=== PATIENT | female | born 1955 | race Two or more races ===

== ENCOUNTER 2020-01-14 13:14 | Inpatient (IN) | payer MEDICAID ==
[2020-01-14] VITALS (26 sets, daily range): BP systolic 35–132; BP diastolic 15–87
[~2020-01-14] VITALS: Ht 149.9 cm; Wt 40.0 kg
[~2020-01-14 13:14] MED LIST: IRON325 M1 PO
--- NOTE | 2020-01-14 13:30 | NUR ---
ED Nurse Note:pt. was BIBA from home with ALOC and hypotension, rectal temp was 93.3, pt. was covered with bearhugger for hypotermia, pt. was placed on patient monitor, blood and covid swab sent to labs, pt. has all 4 extremities contracted, very mulnurished on arrival, she was placed in trendelenburg position for hypotension, given IV fluids, F/C incerted per MD order, pt. has bilateral pedal edema,
[2020-01-14 13:47] LABS: HEMATOCRIT 29.3 % (37.0-47.0); HEMOGLOBIN 8.7 G/DL (12.0-16.0); MEAN CORPUSCULAR VOLUME 77 FL (80-99); MONOCYTES % (AUTO) 11.3 % (1.0-10.0); NEUTROPHILS % (AUTO) 60.8 % (45.0-75.0); PLATELET COUNT 141 K/UL (150-450); RED BLOOD COUNT 3.82 M/UL (4.20-5.40); RED CELL DISTRIBUTION WIDTH 22.1 % (11.6-14.8); WHITE BLOOD COUNT 6.4 K/UL (4.8-10.8)
[2020-01-14 13:58] LABS: INR 1.6 (0.9-1.1)
--- NOTE | 2020-01-14 14:00 | NUR ---
ED Nurse Note:pt. has perianal errosion on skin and multiple skin discolorations on both feet and hands
[2020-01-14 14:01] LABS: ANION GAP 10 mmol/L (5-15); BLOOD UREA NITROGEN 60 mg/dL (7-18); CALCIUM 7.3 MG/DL (8.5-10.1); CARBON DIOXIDE 20 MMOL/L (21-32); CHLORIDE 107 MMOL/L (98-107); CREATININE 2.5 MG/DL (0.55-1.30); POTASSIUM 5.9 MMOL/L (3.5-5.1); SODIUM 137 MMOL/L (136-145)
[2020-01-14] MEDS ORDERED: cefTRIAXone 1 GM in NS 55 ML IVPB ONE (14:15)
[2020-01-14 14:17] LABS: APPEARANCE,URINE SLIGHTLY CLOUDY; BILIRUBIN, URINE 2+ (NEGATIVE); COLOR,URINE BROWN; GLUCOSE, URINE (UA) NEGATIVE (NEGATIVE); KETONES,URINE 1+ (NEGATIVE); LEUKOCYTE ESTERASE ,URINE 1+ (NEGATIVE); NITRITE,URINE POSITIVE (NEGATIVE); PH,URINE 5 (4.5-8.0); PROTEIN,URINE 2+ (NEGATIVE); UROBILINOGEN,URINE 4 MG/DL (0.0-1.0)
[2020-01-14 14:21] LABS: ALANINE AMINOTRANSFERASE 36 U/L (12-78); ALBUMIN 1.2 G/DL (3.4-5.0); ALBUMIN/GLOBULIN RATIO 0.3 (1.0-2.7); ALKALINE PHOSPHATASE 120 U/L (46-116); AMYLASE 23 U/L (25-115); ASPARTATE AMINO TRANSFERASE 31 U/L (15-37); BILIRUBIN,TOTAL 0.5 MG/DL (0.2-1.0); CKMB 6.8 NG/ML (0.0-3.6); CREATINE KINASE 89 U/L (26-308); LACTATE DEHYDROGENASE 237 U/L (81-234)
--- NOTE | 2020-01-14 14:26 | NUR ---
patients son sinefranci the consent for central line
--- NOTE | 2020-01-14 14:34 | Diagnostic Imaging Report ---
Indication: Altered mental status Technique: XRAY Chest 1v Comparison: 10/13/2015 Findings: Heart size and mediastinal contours are stable compared to the prior exam. There is no definite focal airspace consolidation, pleural effusion or pneumothorax. Remote/healed bilateral rib fractures are seen. A chronic deformity of the left proximal humerus is again noted. Impression: No radiographic evidence of acute cardiopulmonary disease.
[2020-01-14] MEDS ORDERED: Levophed 4mg/4mL Inj IV ONE (14:42)
[2020-01-14] MEDS ORDERED: Lidocaine 1% MPF 10mg/ml 5ml ONE (14:42)
[2020-01-14 14:53] LABS: FERRITIN 35 NG/ML (8-388)
--- NOTE | 2020-01-14 15:15 | NUR ---
ED Nurse Note:blood cultures and lactic reflax sent to labs, ER MD was trying to put central line for levophed infusion
--- NOTE | 2020-01-14 15:19 | Emergency Room Report ---
History of Present Illness General Chief Complaint: Altered Level of Consciousness Source: Family Member, EMS (Ever Stark MD) Present Illness HPI 65-year-old female presents the ED for evaluation. Brought in by EMS from home. She was hypotensive. Increased lethargy over the last few days according to son. Home health nurse check blood pressure today and states it was low. Son states patient has a history of anemia. Patient is more confused than usual. States she lost a lot of weight at least recently as she is not eating or drinking. Unable to provide any additional additional history at this time. No other aggravating relieving factors. No other associated symptoms (Ever Stark MD) Allergies: Coded Allergies: No Known Allergies (Unverified , 10/13/15) COVID-19 Screening Contact w/high risk pt: No Experienced COVID-19 symptoms?: No COVID-19 Testing performed NEON TUBE PUMPER: No (Ever Stark MD) Patient History Past Medical History: none Past Surgical History: none Pertinent Family History: none Social History: Denies: smoking, alcohol use, drug use Now: No Immunizations: UTD Reviewed Nursing Documentation: PMH: Agreed; PSxH: Agreed (Ever Stark MD) Nursing Documentation-PMH Past Medical History: No Stated History (Ever Stark MD) Review of Systems All Other Systems: limited (Ever Stark MD) Physical Exam Vital Signs Date Time Temp Pulse Resp B/P (MAP) Pulse Ox O2 Delivery O2 Flow Rate FiO2 01/14/20 13:00 97.9 95 24 117/93 (101) 94 Nasal Cannula 3.0 Sp02 EP Interpretation: reviewed, normal General Appearance: cachetic, other - lethargic Head: normocephalic, atraumatic Eyes: bilateral eye normal inspection, bilateral eye PERRL ENT: hearing grossly normal, normal pharynx, no angioedema, normal voice Neck: full range of motion, supple/symm/no masses Respiratory: chest non-tender, lungs clear, normal breath sounds, speaking full sentences Cardiovascular #1: regular rate, rhythm, no edema Cardiovascular #2: 2+ carotid (R), 2+ carotid (L), 2+ radial (R), 2+ radial (L) , 2+ dorsalis pedis (R), 2+ dorsalis pedis (L) Gastrointestinal: normal bowel sounds, non tender, soft, non-distended, no guarding, no rebound Rectal: deferred Genitourinary: normal inspection, no CVA tenderness Musculoskeletal: back normal, other - contracted extremities Neurologic: other - lethargic Psychiatric: other - lethargic Reflexes: 3+ bicep (R), 3+ bicep (L), 3+ tricep (R), 3+ tricep (L), 3+ knee (R) , 3+ knee (L) Skin: other - see nursing notes Lymphatic: no adenopathy (Ever Stark MD) General Appearance: cachetic, Chronically Ill Neck: other - right side central venous catheter in place Respiratory: other - equal breath sounds Cardiovascular #1: edema - right leg Gastrointestinal: other - no mass Musculoskeletal: other - contracted Neurologic: motor weakness, other - poor responsiveness. Psychiatric: other - depressed affect Skin: other (Lane Longoria MD) Procedures Critical Care Time Critical Care Time Patient had a critical medical condition which untreated could potentially result in life or limb threatening injury. Total critical care time excluding separately billed procedures including discussion with family and consultants was approximately 1:15 minutes. (Lane Longoria MD) Intubation Intubation : Consent: Emergent Time of Intubation: 16:21 Intubation Method: orotracheal Tube Size (cm): 6.5 Medications: Etomidate Breath Sounds after Intubation: equal Intubation Complications: no complications Post Intubation Xray: Yes Attempts: One Patient Tolerated: Well Complications: None Progress Tube secured at 20 cm at the gums. Direct resolution of vocal cords with laryngoscopy with MAC 31 (Lane Longoria MD) Medical Decision Making Diagnostic Impression: Primary Impression: Shock Additional Impressions: Hypotension Anemia Malnutrition Cholelithiasis Coagulopathy Respiratory failure CVA (cerebral vascular accident) Kidney stone ER Course Patient endorsed to me by Dr. Stark. See Dr. Stark's note for full history and physical. patient had significant hypotension as well as malnutrition poorly responsive to fluid bolus. She had been hypotensive and hypothermic on arrival. Bedside ultrasound showed no evidence of pericardial effusion. Patient had a recent central line placement by Dr. Stark with adequate line placement. Patient had markedly diminished blood pressure and subsequently started on pressors. She had been having subsequent agonal breathing. Blood sugar appear to be adequate. Patient was given IV fluid boluses as well as IV antibiotics. She was given hydrocortisone. She was given IV calcium for hyperkalemia. Patient's blood pressure continue to be low and post intubation chest x-ray showed possible mass versus hematoma to the right apical area. Patient's family was consented for CT of the chest and patient's blood pressure had improved enough to the point she was able to be taken to CT. per discussion with the patient's family members patient is full code. Ct head showed some possible CVA. Patient was not anticoagulated due to likely bleeding. 1. Pleural-based masslike abnormal soft tissue at the right apex and extending along the medial aspect of the right upper lobe. A few foci of pleural gas on the right. Differential is hematoma versus malignancy. 2. Diffuse anasarca and upper abdominal mesenteric/omental edema. 3. Hyperemia of the esophageal and visualized upper abdominal GI tract. This can be seen in the setting of shock.Patient has a poor overall prognosis given the patient's multiple comorbidities. CT imaging of the chest showed possible right-sided Dr. Arnie Frost was contacted for inpatient management due to panel physician. Dr. Gibson he was contacted for surgical consult. CT of abdomen showed renal stone, diffuse mesenteric edema, cholelithiasis, fatty liver. Labs Test 01/14/20 13:10 01/14/20 15:10 White Blood Count 6.4 K/UL (4.8-10.8) Red Blood Count 3.82 M/UL (4.20-5.40) Hemoglobin 8.7 G/DL (12.0-16.0) Hematocrit 29.3 % (37.0-47.0) Mean Corpuscular Volume 77 FL (80-99) Mean Corpuscular Hemoglobin 22.8 PG (27.0-31.0) Mean Corpuscular Hemoglobin Concent 29.7 G/DL (32.0-36.0) Red Cell Distribution Width 22.1 % (11.6-14.8) Platelet Count 141 K/UL (150-450) Mean Platelet Volume 6.0 FL (6.5-10.1) Neutrophils (%) (Auto) 60.8 % (45.0-75.0) Lymphocytes (%) (Auto) 26.0 % (20.0-45.0) Monocytes (%) (Auto) 11.3 % (1.0-10.0) Eosinophils (%) (Auto) 0.0 % (0.0-3.0) Basophils (%) (Auto) 2.0 % (0.0-2.0) Prothrombin Time 16.7 SEC (9.30-11.50) Prothromb Time International Ratio 1.6 (0.9-1.1) Activated Partial Thromboplast Time 35 SEC (23-33) D-Dimer 1.13 mg/L FEU (0.00-0.49) Urine Color Brown Urine Appearance Slightly cloudy Urine pH 5 (4.5-8.0) Urine Specific [place] 1.015 (1.005-1.035) Urine Protein 2+ (NEGATIVE) Urine Glucose (UA) Negative (NEGATIVE) Urine Ketones 1+ (NEGATIVE) Urine Blood 1+ (NEGATIVE) Urine Nitrite Positive (NEGATIVE) Urine Bilirubin 2+ (NEGATIVE) Urine Ictotest Negative (NEGATIVE) Urine Urobilinogen 4 MG/DL (0.0-1.0) Urine Leukocyte Esterase 1+ (NEGATIVE) Urine RBC 2-4 /HPF (0 - 2) Urine WBC 2-4 /HPF (0 - 2) Urine Squamous Epithelial Cells Moderate /LPF (NONE/OCC) Urine Amorphous Sediment Few /LPF (NONE) Urine Bacteria Few /HPF (NONE) Urine Hyaline Casts 5-10 /LPF (NONE) Urine Mucus Moderate /LPF (NONE/OCC) Sodium Level 137 MMOL/L (136-145) Potassium Level 5.9 MMOL/L (3.5-5.1) Chloride Level 107 MMOL/L (98-107) Carbon Dioxide Level 20 MMOL/L (21-32) Anion Gap 10 mmol/L (5-15) Blood Urea Nitrogen 60 mg/dL (7-18) Creatinine 2.5 MG/DL (0.55-1.30) Estimat Glomerular Filtration Rate 19.4 mL/min (>60) Glucose Level 95 MG/DL (74-106) Calcium Level 7.3 MG/DL (8.5-10.1) Ferritin 35 NG/ML (8-388) Total Bilirubin 0.5 MG/DL (0.2-1.0) Aspartate Amino Transf (AST/SGOT) 31 U/L (15-37) Alanine Aminotransferase (ALT/SGPT) 36 U/L (12-78) Alkaline Phosphatase 120 U/L (46-116) Lactate Dehydrogenase 237 U/L (81-234) Total Creatine Kinase 89 U/L (26-308) Creatine Kinase MB 6.8 NG/ML (0.0-3.6) Creatine Kinase MB Relative Index 7.6 Troponin I 0.000 ng/mL (0.000-0.056) C-Reactive Protein, Quantitative < 0.4 mg/dL (0.00-0.90) Pro-B-Type Natriuretic Peptide 7266 pg/mL (0-125) Total Protein 5.8 G/DL (6.4-8.2) Albumin 1.2 G/DL (3.4-5.0) Globulin 4.6 g/dL Albumin/Globulin Ratio 0.3 (1.0-2.7) Amylase Level 23 U/L (25-115) Lactic Acid Level 1.90 mmol/L (0.66-2.22) (Lane Longoria MD) EKG Diagnostic Results Rate: normal Rhythm: NSR ST Segments: no acute changes ASA given to the pt in ED: No (Ever Stark MD) Rhythm Strip Diag. Results EP Interpretation: yes Rhythm: NSR, no PVC's, no ectopy (Ever Stark MD) Chest X-Ray Diagnostic Results Chest X-Ray Diagnostic Results : Chest X-Ray Ordered: Yes # of Views/Limited/Complete: 1 View Indication: Other EP Interpretation: Yes Interpretation: no consolidation, no effusion, no pneumothorax, no acute cardiopulmonary disease Impression: No acute disease Electronically Signed by: Electronically signed by Ever Stark MD (Ever Stark MD) Last Vital Signs Date Time Temp Pulse Resp B/P (MAP) Pulse Ox O2 Delivery O2 Flow Rate FiO2 01/14/20 14:01 80 14 Room Air 01/14/20 14:01 97.9 80/35 100 01/14/20 13:00 3.0 (Eevr Stark MD) Status: unchanged (Lane Longoria MD) Disposition: ADMITTED INPATIENT Condition: Critical Scripts No Active Prescriptions or Reported Meds Referrals: [facility] (PCP) Ever Stark MD Jan 14, 2020 15:19 [address] Longoria MD Jan 14, 2020 16:28
--- NOTE | 2020-01-14 16:00 | NUR ---
ED Nurse Note:pt. got right EJ cemtral line placed and pt. started on levophed IV for hypotension
--- NOTE | 2020-01-14 16:17 | NUR ---
ED Nurse Note:etomidate 30 mg was given at 1617, pt. got intubated by Dr. Longoria with 6.5 tube at 20cm Addendum: 01/14/20 at 1632 by PETAR ED Nurse Note:15mg etomidate was given at 1618 per mr order ,pt. got intubated by dr. Longoria with 6.5 tube at 20cm
--- NOTE | 2020-01-14 16:25 | Pre-Procedure Note/Attestation ---
Pre-Procedure Note/Attestation Complete Prior to Procedure Planned Procedure: not applicable Procedure Narrative: central line placement Indications for Procedure Pre-Operative Diagnosis: critically ill patient needing central venous access Attestation consent signed/obtained by ER physician. Espinoza Wright M.D. Jan 14, 2020 16:25
--- NOTE | 2020-01-14 16:29 | Diagnostic Imaging Report ---
Indication: Critically ill patient with hemodynamic instability needing central venous access. Technique: Procedure performed at bedside. Procedural timeout performed. Total sterile technique, including sterile probe cover and sterile gel, sterile gloves, hand hygiene, hat, mask, sterile gown, large sterile drape, and preparation with 2% chlorhexidine utilized. Local anesthesia with 1% lidocaine. Under real-time ultrasound guidance, puncture right internal jugular vein using 21-gauge needle, passage of microwire, exchange for a micropuncture sheath, passage 0.035 guidewire, exchange for a dilator followed by 15 cm long triple-lumen central line. Guidewire was removed. Catheter ports were aspirated and flushed, confirming appropriate functioning. The catheter was fixed to the skin and a sterile dressing was applied. A chest x-ray was obtained, documents catheter tip position at the expected region of the SVC. The patient significantly rotated on chest radiograph. There is slight lucency of the right base which is favored to be artifactual and related to patient rotation, especially as lung markings are seen in this region. Possibility of a tiny basilar pneumothorax is thought less likely but not entirely excluded.. Findings: As above IMPRESSION: Successful bedside placement of right transjugular central venous catheter, as described. Catheter cleared for immediate use. Slight lucency of the right lung base favored to be artifactual and related to patient positioning. Possibility of a tiny basilar pneumothorax is thought less likely but not entirely excluded. Attention on follow-up recommended. Findings discussed and images reviewed in person with ER physician Kaylah Stark
[2020-01-14] MEDS ORDERED: Etomidate 40mg/20ml Inj IV ONE (16:30)
[2020-01-14] MEDS ORDERED: DOPamine 400mg/250ml 250 ML IV ONE (16:38)
[2020-01-14] MEDS ORDERED: Calcium Gluconate 1gm/10ml vial ONE (16:41)
[2020-01-14] MEDS ORDERED: DOPamine 400mg/250ml 250 ML IV SCH ×2 (16:45→23:30)
[2020-01-14] MEDS ORDERED: Calcium Gluconate 1gm/10ml vial IVP ONE (16:45)
--- NOTE | 2020-01-14 16:48 | NUR ---
ED Nurse Note:pt. was started on dopamine drip at 5mcg/min
[2020-01-14] MEDS ORDERED: Omnipaque-300 100ml vial INJ ONE (17:00)
--- NOTE | 2020-01-14 17:02 | Diagnostic Imaging Report ---
Indication: Respiratory failure. Status post intubation. Technique: XRAY Chest 1v Comparison: Earlier the same day. Findings: Interval endotracheal intubation with the tip of the ET tube just above the level of clavicles, approximately 5.5 cm above the fadia. Right jugular central line tip the expected region of the SVC. There is opacification/obscuration of the right lung apex which persists despite better patient positioning. The possibility of pleural effusion or hemothorax not excluded, especially given history of difficulty and line placement. Recommend further evaluation with CT. No definite pneumothorax is seen. Impression: * Satisfactory endotracheal intubation. * Obscuration of the right apex and increased density of the right paratracheal stripe. Given known history of difficulty in central line placement, possibility of mediastinal hematoma or hemothorax not excluded. Recommend further evaluation with CT. This was discussed with Dr. Longoria of the emergency department.
[2020-01-14] MEDS ORDERED: Pantoprazole Inj IVP ONE (17:15)
[2020-01-14] MEDS ORDERED: Hydrocortisone 100mg Inj IV ONE (17:15)
--- NOTE | 2020-01-14 17:42 | NUR ---
ED Nurse Note:pt. is back from CT scan, continue on levophed and dopamine drips for BP management
[2020-01-14] MEDS ORDERED: Piperacillin/Tazobactam 2.25 GM in NS 110 ML IVPB ONE (17:45)
--- NOTE | 2020-01-14 18:12 | Diagnostic Imaging Report ---
EXAM: CT Head Without Intravenous Contrast CLINICAL HISTORY: AMS TECHNIQUE: Axial computed tomography images of the head/brain without intravenous contrast. CTDI is 53.4 mGy and DLP is 1125.7 mGy-cm. One or more of the following dose reduction techniques were used: automated exposure control, adjustment of the mA and/or kV according to patient size, use of iterative reconstruction technique. COMPARISON: No relevant prior studies available. FINDINGS: Brain: Low attenuation within the left basal ganglia and left frontal periventricular white matter. No intracranial hemorrhage. No mass- effect. Ventricles: Unremarkable. Bones/joints: Unremarkable. No fracture. Soft tissues: Unremarkable. Sinuses: Mucous retention cyst within the right maxillary sinus. Mastoid air cells: Unremarkable as visualized. IMPRESSION: Low attenuation within the left basal ganglia and left frontal periventricular white matter. An acute infarct could have this appearance in the appropriate clinical setting. Consider MRI for further evaluation. <MYCVCSECTION> Communications: 01/14/20 18:13 Call Doctor Regarding Above results, called Von HOOD on 01/13 18:13 (-07:00)
--- NOTE | 2020-01-14 18:21 | Diagnostic Imaging Report ---
EXAM: CT Chest With Intravenous Contrast CLINICAL HISTORY: Pleural effusion TECHNIQUE: Axial computed tomography images of the chest with intravenous contrast. CTDI is 1 day 2.7 mGy and DLP is 121 mGy-cm. One or more of the following dose reduction techniques were used: automated exposure control, adjustment of the mA and/or kV according to patient size, use of iterative reconstruction technique. COMPARISON: No relevant prior studies available. FINDINGS: Lungs/pleura: Pleural-based masslike abnormal soft tissue at the right apex and extending along the medial aspect of the right upper lobe. A few foci of pleural gas on the right. Heart: Unremarkable. No cardiomegaly. No significant pericardial effusion. Mediastinum: Hyperemia of the esophageal and visualized upper abdominal GI tract. Bones/joints: Increased density of the bones. No focal lesion. Soft tissues: Mesenteric edema within the upper abdomen. Subcutaneous emphysema adjacent to the right central line and within the left supraclavicular soft tissues. Diffuse anasarca. Vasculature: No pulmonary embolism. No acute aortic syndrome. Lymph nodes: Unremarkable. Tubes, lines and devices: Right IJ central line terminates within the SVC. Endotracheal tube terminates at the level of the clavicular heads. IMPRESSION: 1. Pleural-based masslike abnormal soft tissue at the right apex and extending along the medial aspect of the right upper lobe. A few foci of pleural gas on the right. Differential is hematoma versus malignancy. 2. Diffuse anasarca and upper abdominal mesenteric/omental edema. 3. Hyperemia of the esophageal and visualized upper abdominal GI tract. This can be seen in the setting of shock.
--- NOTE | 2020-01-14 18:54 | NUR ---
ED Nurse Note:family is at the bedside, continue titrating vasopressors to bring BP up, called blood bank to prepeair blood for transfusion
--- NOTE | 2020-01-14 18:59 | NUR ---
spoke with em from lab, states that they found 1 compatible bag of blood, and they will be doing a crossmatch, states blood will be ready in 10-15 minutes
--- NOTE | 2020-01-14 19:07 | Consultation ---
History of Present Illness General Reason for Hospitalization: Altered Level of Consciousness Present Illness HPI 65-year-old female presented from home with hypotension lethargic decreased level of consciousness and was identified to be significantly hypotensive in the emergency room admitted to intensive care unit further care and management respiratory insufficiency on support lines placed pressors initiated surgery called to evaluate assist with care. Patient seen, patient evaluated, chart reviewed. Potential mass for in the apex left side side severe anemia possible GI bleed patient able to provide examination or history Allergies: Coded Allergies: No Known Allergies (Unverified , 10/13/15) COVID-19 Screening Contact w/high risk pt: No Experienced COVID-19 symptoms?: No COVID-19 symptoms experienced: Shortness of Breath Medication History No Active Prescriptions or Reported Meds Patient History Limited by: medical condition History Provided By: Medical Record, PMD Healthcare decision maker Resuscitation status Advanced Directive on File Past Medical/Surgical History Past Medical/Surgical History: (1) Cellulitis (2) Dermatitis (3) Contracture of muscle (4) Anemia (5) Malnutrition (6) Hypotension (7) Shock Review of Systems Review of Symptoms -O-o-b-e-r-a-l- -R-O-S--:- -n-o- -d-m-s-g-h-t- -l-o-s-s- -o-r- -f-e-v-e-r- -F-q-i-j-i-s-w-k-b-i-c-a-l- -R-O-S--:- -n-o- -a-i-p-f-o-w-s-i-o-n- -o-r- -m-o-o-d- -s-v-r-n-g-e-s--,- -n-o- -a-d-z-o-r-y- -l-o-s-s- -A-t-g-d-e-v-l-m-i-c- -R-O-S--:- -n-o- -z-r-k-u-a-l- -b-a-l-n-g-e-s- -o-r- -e-y-e- -g-k-o-m-z-j-t-i-o-n- -E-N-T- -R-O-S--:- -n-o- -n-a-s-a-l- -s-q-i-v-f-u-t-i-o-n--,- -w-e-j-r-i-n-g- -l-o-s-s--,- -h-r-p-p-t-t-e-s-s- -Z-e-r-e-r-g-y- -a-n-d- -R-o-t-t-h-g-l-o-g-y- -R-O-S--:- -n-o- -m-v-x-e-r-g-i-c- -c-n-z-p-t-o-m-s- -o-r- -c-z-u-u-q-w-r-i-a- -E-i-j-f-h-m-i-n-g-i-c-a-l- -a-n-d- -W-z-h-l-j-s-t-i-c- -R-O-S--:- -n-o- -y-g-i-l-l-e-n- -r-t-b-n-d-s--,- -a-l-s-s-u-a-l- -k-s-w-e-d-i-n-g- -o-r- -n-y-z-i-s-i-n-g- -G-g-p-q-o-f-i-n-e- -R-O-S--:- -n-o- -o-l-z-y-u-r-i-a--,- -d-e-b-q-a-a-p-s-i-a- -,- -b-m-o-g-h-t- -f-g-h-n-g-e-s--,- -y-k-z-v-z-y-a-t-u-r-e- -h-z-g-c-a-h-r-a-n-c-e- -G-h-l-t-e-i-a-t-o-r-y- -R-O-S--:- -n-o- -c-o-u-g-h--,- -c-l-g-s-n-p-e-s-s- -o-f- -q-b-f-a-t-h--,- -o-r- -s-b-h-e-z-i-n-g- -Y-r-f-f-f-k-o-e-i-c-u-l-a-r- -R-O-S--:- -n-o- -c-h-e-s-t- -p-a-i-n- -o-r- -f-u-g-p-n-e-a- -o-n- -y-z-b-r-t-i-o-n- -U-a-l-k-p-u-s-z-w-v-m-u-i-n-a-l- -R-O-S--:- -t-e-d-i-e-s- -u-i-b-v-e-q-n-a-l- -p-a-i-n--,- -w-x-n-g-h-t- -r-e-d- -b-l-o-o-d- -i-n- -s-t-o-o-l-.- -D-c-s-i-d-q-m-n-z-t-m-w-t-a-l- -R-O-S--:- -n-o- -j-d-d-l-g-i-a-s- -o-r- -u-d-n-t-r-j-l-g-i-a-s- -K-j-v-k-k-e-w-a-a-c-a-l- -R-O-S--:- -n-o- -T-I-A- -o-r- -e-f-k-o-k-e- -r-b-w-p-t-o-m-s- -M-w-o-c-o-u-b-x-c-g-i-c-a-l- -R-O-S--:- -n-o- -n-e-w- -o-r- -n-b-t-n-g-i-n-g- -s-k-i-n- -c-c-c-i-o-n-s--,- -f-t-q-h-e-s- -o-r- -u-l-g-r-i-t-i-s- Physical Exam Physical Exam General appearance: ill distress, appears stated age Head: Normocephalic, without obvious abnormality, atraumatic Eyes: conjunctivae/corneas clear. PERRL, EOM's intact. Fundi benign Throat: Lips, mucosa, and tongue normal. Teeth and gums normal Neck: supple, symmetrical, trachea midline, no adenopathy, thyroid: not enlarged, symmetric, no tenderness/mass/nodules, no carotid bruit and no JVD Lungs: Decreased on support to auscultation bilaterally Heart: regular rate and rhythm, S1, S2 normal, no murmur, click, rub or gallop Abdomen: soft, non-tender. Bowel sounds normal. No masses, no organomegaly Extremities: extremities normal, atraumatic, no cyanosis or edema Pulses: 2+ and symmetric Skin: Skin color, texture, turgor normal. No rashes or lesions Neurologic: Grossly normal Last 24 Hour Vital Signs Date Time Temp Pulse Resp B/P (MAP) Pulse Ox O2 Delivery O2 Flow Rate FiO2 01/14/20 18:58 35/20 01/14/20 18:44 50/24 01/14/20 18:44 50/24 01/14/20 18:29 62/49 01/14/20 18:29 62/49 01/14/20 18:28 94.0 125 20 62/41 99 Mechanical Ventilator 9/14/20 17:56 81/49 01/14/20 17:55 107 20 81/49 99 Mechanical Ventilator 01/14/20 17:20 63/50 01/14/20 17:20 63/50 01/14/20 17:17 105 18 63/50 99 Mechanical Ventilator 01/14/20 16:47 94 18 60/24 99 Mechanical Ventilator 01/14/20 16:46 60/21 01/14/20 16:34 79 18 100 01/14/20 16:27 85 30 35/15 96 Mechanical Ventilator 01/14/20 16:04 36/26 01/14/20 15:00 93.5 94 14 64/33 100 Room Air 01/14/20 14:01 80 14 Room Air 01/14/20 14:01 97.9 80 14 80/35 100 Room Air 01/14/20 13:00 97.9 95 24 117/93 (101) 94 Nasal Cannula 3.0 Laboratory Tests Test 01/14/20 13:10 01/14/20 15:10 01/14/20 16:16 White Blood Count 6.4 K/UL (4.8-10.8) Red Blood Count 3.82 M/UL (4.20-5.40) L Hemoglobin 8.7 G/DL (12.0-16.0) L Hematocrit 29.3 % (37.0-47.0) L Mean Corpuscular Volume 77 FL (80-99) L Mean Corpuscular Hemoglobin 22.8 PG (27.0-31.0) L Mean Corpuscular Hemoglobin Concent 29.7 G/DL (32.0-36.0) L Red Cell Distribution Width 22.1 % (11.6-14.8) H Platelet Count 141 K/UL (150-450) L Mean Platelet Volume 6.0 FL (6.5-10.1) L Neutrophils (%) (Auto) 60.8 % (45.0-75.0) Lymphocytes (%) (Auto) 26.0 % (20.0-45.0) Monocytes (%) (Auto) 11.3 % (1.0-10.0) H Eosinophils (%) (Auto) 0.0 % (0.0-3.0) Basophils (%) (Auto) 2.0 % (0.0-2.0) Prothrombin Time 16.7 SEC (9.30-11.50) H Prothromb Time International Ratio 1.6 (0.9-1.1) H Activated Partial Thromboplast Time 35 SEC (23-33) H D-Dimer 1.13 mg/L FEU (0.00-0.49) H Urine Color Brown Urine Appearance Slightly cloudy Urine pH 5 (4.5-8.0) Urine Specific [place] 1.015 (1.005-1.035) Urine Protein 2+ (NEGATIVE) H Urine Glucose (UA) Negative (NEGATIVE) Urine Ketones 1+ (NEGATIVE) H Urine Blood 1+ (NEGATIVE) H Urine Nitrite Positive (NEGATIVE) H Urine Bilirubin 2+ (NEGATIVE) H Urine Ictotest Negative (NEGATIVE) Urine Urobilinogen 4 MG/DL (0.0-1.0) H Urine Leukocyte Esterase 1+ (NEGATIVE) H Urine RBC 2-4 /HPF (0 - 2) H Urine WBC 2-4 /HPF (0 - 2) Urine Squamous Epithelial Cells Moderate /LPF (NONE/OCC) H Urine Amorphous Sediment Few /LPF (NONE) H Urine Bacteria Few /HPF (NONE) Urine Hyaline Casts 5-10 /LPF (NONE) H Urine Mucus Moderate /LPF (NONE/OCC) H Sodium Level 137 MMOL/L (136-145) Potassium Level 5.9 MMOL/L (3.5-5.1) H Chloride Level 107 MMOL/L (98-107) Carbon Dioxide Level 20 MMOL/L (21-32) L Anion Gap 10 mmol/L (5-15) Blood Urea Nitrogen 60 mg/dL (7-18) H Creatinine 2.5 MG/DL (0.55-1.30) H Estimat Glomerular Filtration Rate 19.4 mL/min (>60) Glucose Level 95 MG/DL (74-106) Lactic Acid Level 3.10 mmol/L (0.4-2.0) H 1.90 mmol/L (0.66-2.22) Calcium Level 7.3 MG/DL (8.5-10.1) L Ferritin 35 NG/ML (8-388) Total Bilirubin 0.5 MG/DL (0.2-1.0) Aspartate Amino Transf (AST/SGOT) 31 U/L (15-37) Alanine Aminotransferase (ALT/SGPT) 36 U/L (12-78) Alkaline Phosphatase 120 U/L (46-116) H Lactate Dehydrogenase 237 U/L (81-234) H Total Creatine Kinase 89 U/L (26-308) Creatine Kinase MB 6.8 NG/ML (0.0-3.6) H Creatine Kinase MB Relative Index 7.6 Troponin I 0.000 ng/mL (0.000-0.056) C-Reactive Protein, Quantitative < 0.4 mg/dL (0.00-0.90) Pro-B-Type Natriuretic Peptide 7266 pg/mL (0-125) H Total Protein 5.8 G/DL (6.4-8.2) L Albumin 1.2 G/DL (3.4-5.0) L Globulin 4.6 g/dL Albumin/Globulin Ratio 0.3 (1.0-2.7) L Amylase Level 23 U/L (25-115) L POC Whole Blood Glucose Pending Microbiology Date/Time Source Procedure Growth Status 01/14/20 13:10 Nasopharynx SARS-CoV-2 RdRp Gene Assay - Final Complete Height (Feet): 4 Height (Inches): 11.00 Weight (Pounds): 70 Medications Current Medications Medications (Trade) Dose Ordered Sig/Mitzy Route PRN Reason Start Time Stop Time Status Last Admin Dose Admin Dopamine HCl/ Dextrose 250 ml @ 0 mls/hr Q24H IV 01/14/20 16:45 04/13/20 16:44 01/14/20 16:46 Norepinephrine Bitartrate 4 mg/ Dextrose 250 ml @ 0 mls/hr Q24H IV 01/14/20 16:00 02/13/20 15:59 01/14/20 16:04 Assessment/Plan Problem List: (1) Anemia ICD Codes: D64.9 - Anemia, unspecified SNOMED: 121470727 (2) Malnutrition ICD Codes: E46 - Unspecified protein-calorie malnutrition SNOMED: 71973771 (3) Hypotension ICD Codes: I95.9 - Hypotension, unspecified SNOMED: 72446028 (4) Shock Assessment & Plan: 65-year-old female presented in septic shock hypotensive anemia. Extensive work-up for etiology. Respiratory insufficiency intubated in ICU on pressor support. Significant anemia transfused work-up for etiology of bleeding undergoing. Patient too unstable for scope or intervention. Line placed. Lines noted. Continue with current management and resuscitation. No acute surgical intervention planned at this time. ABDOMEN: Liver: Hepatic steatosis. Gallbladder and bile ducts: Cholelithiasis. Gallbladder not visualized. Pancreas: Pancreas is obscured. Spleen: Spleen is obscured. Adrenals: Adrenal glands are obscured. Kidneys and ureters: Moderate right hydronephrosis. No ureteral dilatation. 3 mm stone within the right hemipelvis (image 7-112) is favored extra-ureteral. Contrast material within the renal collecting systems and ureters. Multiple cysts within the kidneys. Stomach and bowel: Postsurgical changes within the small bowel and colon. No bowel obstruction. PELVIS: Appendix: No findings to suggest acute appendicitis. Bladder: Contrast material within the bladder. Joaquin catheter within the bladder. No stones. Reproductive: Unremarkable as visualized. ABDOMEN and PELVIS: Intraperitoneal space: Unremarkable. No free air. No significant fluid collection. Bones/joints: Severe degenerative changes of the right hip. Left total hip arthroplasty. Soft tissues: Study severely limited by the patient's contracture deformity and marked mesenteric/soft tissue edema which obscures all of the fat planes within the abdomen and pelvis. Extensive mesenteric/soft tissue edema. Vasculature: Unremarkable. Lymph nodes: Unremarkable. IMPRESSION: 1. Study severely limited by the patient's contracture deformity and marked mesenteric/soft tissue edema which obscures all of the fat planes within the abdomen and pelvis. 2. Moderate right hydronephrosis. No ureteral dilatation. 3 mm stone within the right hemipelvis (image 7-112) is favored extra-ureteral. 3. Postsurgical changes within the small bowel and colon. The bowel is very poorly visualized. 4. Hepatic steatosis. 5. Cholelithiasis. 6. Left lower lobe atelectasis and small left pleural effusion. 7. Severe degenerative changes of the right hip. ICD Codes: R57.9 - Shock, unspecified SNOMED: 87109925 (5) Cellulitis ICD Codes: L03.90 - Cellulitis, unspecified SNOMED: 623670178 (6) Dermatitis ICD Codes: L30.9 - Dermatitis, unspecified SNOMED: 09198148 (7) Contracture of muscle ICD Codes: M62.40 - Contracture of muscle, unspecified site SNOMED: 52411947 (8) Cholelithiasis ICD Codes: K80.20 - Calculus of gallbladder without cholecystitis without obstruction SNOMED: 025506260 (9) Kidney stone ICD Codes: N20.0 - Calculus of kidney SNOMED: 89135664 (10) Coagulopathy ICD Codes: D68.9 - Coagulation defect, unspecified SNOMED: 12464281 (11) CVA (cerebral vascular accident) ICD Codes: I63.9 - Cerebral infarction, unspecified SNOMED: 099272179 (12) Respiratory failure Assessment & Plan: Lungs/pleura: Pleural-based masslike abnormal soft tissue at the right apex and extending along the medial aspect of the right upper lobe. A few foci of pleural gas on the right. Heart: Unremarkable. No cardiomegaly. No significant pericardial effusion. Mediastinum: Hyperemia of the esophageal and visualized upper abdominal GI tract. Bones/joints: Increased density of the bones. No focal lesion. Soft tissues: Mesenteric edema within the upper abdomen. Subcutaneous emphysema adjacent to the right central line and within the left supraclavicular soft tissues. Diffuse anasarca. Vasculature: No pulmonary embolism. No acute aortic syndrome. Lymph nodes: Unremarkable. Tubes, lines and devices: Right IJ central line terminates within the SVC. Endotracheal tube terminates at the level of the clavicular heads. IMPRESSION: 1. Pleural-based masslike abnormal soft tissue at the right apex and extending along the medial aspect of the right upper lobe. A few foci of pleural gas on the right. Differential is hematoma versus malignancy. 2. Diffuse anasarca and upper abdominal mesenteric/omental edema. 3. Hyperemia of the esophageal and visualized upper abdominal GI tract. This can be seen in the setting of shock. wean vent ICD Codes: J96.90 - Respiratory failure, unspecified, unspecified whether with hypoxia or hypercapnia SNOMED: 075102399 (13) Decubitus skin ulcer Assessment & Plan: Pt presented on admission with mottling of trunk, bilat upper and Bilat lower extremities, Contractures and Pressure injuries. Web spaces of fingers of R hand purpuric with ulcerations with surrounding maceration and is malodorous. Pt noted to have swelling of mons-pubis and labia majora which is also purpuric with # 3 small ulcerations that are moist and viable, noted to perineum. Noelle-rectal area is excoriated. DTPI R Iliac. Base of Pressure Injury is indurated,purpuric with surrounding maroon borders(L)3.6cm x (W)2.5cm. DTPI R Lumbar/sacral area. Base of Pressure injury is purpuric with maroon borders.(L)2.5cm x (W)5.5cm.Periwound is pale and mottled. Full Thickness Pressure Injury lower R buttocks(L)1.4cm x (W)1.4cm x (D)0.2cm. Base of wound is pale, moist with macerated Borders. Small amt serous exudate noted. Periwound is pale and mottled. DTPI L Hip(L)3.7cm x (W)6.2cm. Base of Pressure Injury is Purpuric with maroon borders. Non-Blanchable erythema periwound. Historical scar noted to L Hip. DTPI L trochanteric(L)6.8cm x (W)13cm . Base of Pressure Injury is maroon with scattered Purpuric areas. Surrounding non-blanchable erythema. DTPI L Ischium(L)3.8cm x (W)3.5cm. Base of Pressure Injury is purpuric with maroon borders. Surrounding pale and mottled skin. R Ischium is mottled and pale. Scattered Purpuric areas noted to both lower extremities Full thickness Ulcer with irregular borders that macerated noted to medial R lower extremity(L)6.8cm x (W)2.2cm x (D)0.3cm. Base of wound is pale, moist with macerated borders. Periwound is mottled and cool to touch. R foot is cool to touch.Web spaces of of R 3rd,4th and 5th metatarsals are macerated,ulcerated and malodorous. R Heel is purpuric ,fluctuant with surrounding pale and mottled skin (L)9cm x (W )8cm. Haemosiderin L lower ext with Xerosis skin.L foot cool touch. Web spaces of 2nd , 3rd, 4th and 5th metatarsals are macerated and malodorous. L Heel is purpuric ,fluctuant with surrounding Maroon borders(L)7cm x (W)8.5cm. Pt is highly compromised for skin breakdown due to protruding bony prominences and poor tissue profusion.Pt noted to develop erythema over bony prominence when positioned over said bony prominence for short periods. Cavilon Skin Barrier applied to bony prominences and each individually covered with Optifoam drsgs. Pt also placed on an APM/ARELIS Mattress overlay.Positioned with pillows and both heels floated off mattress with pillows. Tx.Plan: Apply Cavilon Skin Barrier to bony prominences and cover areas with Optifoam drsgs as needed. Apply Moisture Barrier paste to to Perineum and Noelle-Rectal areas with each incontinence care. Cleanse wound Lower R buttocks. Apply TheraHoney. Apply Moisture Barrier paste Periwound. Cover with Optifoamdrsg. Change Daily and prn. Apply Cavilon Skin Barrier to R Iliac , R Lumbar-sacral,L Hip ,L trochanter, L Ischium,R Ischium. Cover each sitewith Optifoam drsgs. Change every 3 days and prn. Cleanse wound medial R lower ext. Apply TheraHoney. Apply Cavilon Skin Barrier Periwound. Cover with Abd pad. Wrap with Kerlix from base of toes to mid-calf Daily and prn. Apply Cavilon Skin Barrier to R heel . Cover with Abd .Wrap with Kerlix Daily and prn. Apply Photoplex Lotion to both lower ext daily and prn. Apply Cavilon Skin Barrier to L heel,Malleoli and L hallux. Cover with ABD pad .Wrap with Kerlix from base of toesto mid-calf Daily and prn. Apply Betadine to web spaces of metatarsals both feet. Weave dry gauze between toes Daily and prn. Reposition at least every 2hours or as tolerated. Off-load heels with pillow. APM/ARELIS Mattress overlay. ICD Codes: L89.90 - Pressure ulcer of unspecified site, unspecified stage SNOMED: 935224542 ArthurjanetKeron Jan 14, 2020 19:07
--- NOTE | 2020-01-14 19:12 | NUR ---
HAND-OFF: Report given to Mary.
[2020-01-14 19:25] LABS: HEMATOCRIT 12.5 % (37.0-47.0); HEMOGLOBIN 3.7 G/DL (12.0-16.0); MEAN CORPUSCULAR VOLUME 77 FL (80-99); PLATELET COUNT 100 K/UL (150-450); RED BLOOD COUNT 1.62 M/UL (4.20-5.40); RED CELL DISTRIBUTION WIDTH 23.2 % (11.6-14.8); WHITE BLOOD COUNT 5.4 K/UL (4.8-10.8)
--- NOTE | 2020-01-14 19:25 | NUR ---
Nurse Note: Report received from NORIS Oneill for continuity of care. Pt a&ox0, nonverberal, contracted on lower extremities. Pt twitches to pain. Pt on continous cardiac montior; HR 128, BP 34/28. Pt has an established RT IJ, infusing dopamine 20 mcg/min and levophed 30 mcg/min. Pt on mechanical vent; 6.5 ETT, 20 cm at gum line with vent settings of AC 18, TV 400, 100% FIO2. SLIV LT FA 22 guage; patent. Pt has a vasquez cath present; urine output noted. Skin irritation noted on scaral area; was reported by AM nurse that wound pictures were taken. Pt has swollen bilateral feet. ABG being obtained by RT. Awaiting blood for transfusion.
--- NOTE | 2020-01-14 20:41 | NUR ---
Nurse Note: New bag of levophed started at same dose. MD aware of pt BP; awaiting further orders. ABG resulted and showed to MD; no orders. Pt infusing blood; called blood bank for 2nd unit. Unit not ready; reported blood bank will call for chicken picker. Family at bedside. Pt hypothermic; 93.2F rectal temp. Bearhugger applied and will monitor.
--- NOTE | 2020-01-14 21:00 | NUR ---
Nurse Note: Per RT, vent setting changed to AC 18, TV 400, 500% FIO2. Pt O2 at 100% with wavelengths noted.
--- NOTE | 2020-01-14 21:18 | NUR ---
Nurse Note: Per family request, pt wants a CT abd/pelvis; taken to CT. On arrival BP 104/56. All ports patent. Pt currently max of levophed and dopamine. Pt placed back on bearhugger. Awaiting blood and plasma. [facility] bedside[facility]
--- NOTE | 2020-01-14 22:11 | Diagnostic Imaging Report ---
EXAM: CT Abdomen and Pelvis Without Intravenous Contrast CLINICAL HISTORY: ABN LABS TECHNIQUE: Axial computed tomography images of the abdomen and pelvis without intravenous contrast. CTDI is 3.3 mGy and DLP is 154.2 mGy-cm. One or more of the following dose reduction techniques were used: automated exposure control, adjustment of the mA and/or kV according to patient size, use of iterative reconstruction technique. COMPARISON: No relevant prior studies available. FINDINGS: Lung bases: Left lower lobe atelectasis and small left pleural effusion. Mediastinum: Small hiatal hernia. ABDOMEN: Liver: Hepatic steatosis. Gallbladder and bile ducts: Cholelithiasis. Gallbladder not visualized. Pancreas: Pancreas is obscured. Spleen: Spleen is obscured. Adrenals: Adrenal glands are obscured. Kidneys and ureters: Moderate right hydronephrosis. No ureteral dilatation. 3 mm stone within the right hemipelvis (image 7-112) is favored extra-ureteral. Contrast material within the renal collecting systems and ureters. Multiple cysts within the kidneys. Stomach and bowel: Postsurgical changes within the small bowel and colon. No bowel obstruction. PELVIS: Appendix: No findings to suggest acute appendicitis. Bladder: Contrast material within the bladder. Joaquin catheter within the bladder. No stones. Reproductive: Unremarkable as visualized. ABDOMEN and PELVIS: Intraperitoneal space: Unremarkable. No free air. No significant fluid collection. Bones/joints: Severe degenerative changes of the right hip. Left total hip arthroplasty. Soft tissues: Study severely limited by the patient's contracture deformity and marked mesenteric/soft tissue edema which obscures all of the fat planes within the abdomen and pelvis. Extensive mesenteric/soft tissue edema. Vasculature: Unremarkable. Lymph nodes: Unremarkable. IMPRESSION: 1. Study severely limited by the patient's contracture deformity and marked mesenteric/soft tissue edema which obscures all of the fat planes within the abdomen and pelvis. 2. Moderate right hydronephrosis. No ureteral dilatation. 3 mm stone within the right hemipelvis (image 7-112) is favored extra-ureteral. 3. Postsurgical changes within the small bowel and colon. The bowel is very poorly visualized. 4. Hepatic steatosis. 5. Cholelithiasis. 6. Left lower lobe atelectasis and small left pleural effusion. 7. Severe degenerative changes of the right hip.
--- NOTE | 2020-01-14 22:30 | NUR ---
Nurse Note: Report given to NORIS Tenorio for continuity of care. Endorsed to NORIS Tenorio that the second unit of blood is pending d/t antibodies incompatability. Pt more awake, able to track with eyes, responds to pain. RT IJ patent and infusing plasma, dopamine, and levophed. SLIV LT FA. Pt BP trending upwards and maintaing SBP 80-94. Pt on bearhugger for temperature control. All belongings taken with pt. CRE, VRE, MRSA swabs collected and sent to lab.
[2020-01-14] MEDS ORDERED: Zosyn 2.25gm inj ONE (22:58)
--- NOTE | 2020-01-14 23:07 | NUR ---
NURSE NOTES: Called MD Frost for admission orders at this time. awaiting call back
--- NOTE | 2020-01-14 23:16 | NUR ---
NURSE NOTES: MD Frost Called back with admitting orders. informed him about patient Hgb in ER and only 2 units of blood ordered. Repeat CBC in the AM per MD. Consult MD ordered also received.
[2020-01-15] VITALS (78 sets, daily range): BP systolic 0–117; BP diastolic 0–97
[2020-01-15] MEDS ORDERED: Levophed 4mg/4mL Inj IV ONE (00:19)
[2020-01-15] MEDS ORDERED: Vancomycin 500mg/D5W 100ml IVPB SCH ×2 (02:00)
--- NOTE | 2020-01-15 02:00 | NUR ---
NURSE NOTES: Peter Tucker called at this time for updates, given and stated " there will be lots of people calling for updates, you can give updates to anyone that calls".
[2020-01-15] MEDS: Phenylephrine 50 MG in D5W 245 ML IV PRN ×5 (02:25→18:15)
--- NOTE | 2020-01-15 03:24 | NUR ---
NURSE NOTES: Notified MD Frost patient BP continues to drop. Dopamine stopped and denis was started. awaiting call back
--- NOTE | 2020-01-15 06:10 | NUR ---
NURSE NOTES: Called and spoke with Nitin at this time in regards to blood. stated its now ready.
--- NOTE | 2020-01-15 06:18 | NUR ---
NURSE NOTES: Started Blood transfusion at this time. Will continue to monitor.
--- NOTE | 2020-01-15 06:30 | NUR ---
NURSE NOTES: Son Garrett Called, updates given. Stated he will be here this morning.
--- NOTE | 2020-01-15 07:19 | General Progress Note ---
Assessment/Plan Problem List: (1) Respiratory failure ICD Codes: J96.90 - Respiratory failure, unspecified, unspecified whether with hypoxia or hypercapnia SNOMED: 156652125 (2) Anemia ICD Codes: D64.9 - Anemia, unspecified SNOMED: 257857466 (3) Shock ICD Codes: R57.9 - Shock, unspecified SNOMED: 55888918 (4) Hypotension ICD Codes: I95.9 - Hypotension, unspecified SNOMED: 39657996 (5) Malnutrition ICD Codes: E46 - Unspecified protein-calorie malnutrition SNOMED: 84963908 (6) CVA (cerebral vascular accident) ICD Codes: I63.9 - Cerebral infarction, unspecified SNOMED: 962294660 (7) Cholelithiasis ICD Codes: K80.20 - Calculus of gallbladder without cholecystitis without obstruction SNOMED: 756800628 (8) Coagulopathy ICD Codes: D68.9 - Coagulation defect, unspecified SNOMED: 71450825 (9) Kidney stone ICD Codes: N20.0 - Calculus of kidney SNOMED: 50484300 (10) Contracture of muscle ICD Codes: M62.40 - Contracture of muscle, unspecified site SNOMED: 82459442 Assessment/Plan: npo ppi blood transfusion currently on 2 pressors and not stable for EGD abx per ID wound care Subjective ROS Limited/Unobtainable: No Allergies: Coded Allergies: No Known Allergies (Unverified , 10/13/15) Objective Last 24 Hour Vital Signs Date Time Temp Pulse Resp B/P (MAP) Pulse Ox O2 Delivery O2 Flow Rate FiO2 01/15/20 06:45 125 18 90/60 (70) 100 01/15/20 06:30 123 16 75/56 (62) 98 01/15/20 06:15 121 17 88/61 (70) 98 01/15/20 06:00 132 17 92/49 (63) 98 01/15/20 05:59 132 102/42 01/15/20 05:45 121 17 94/50 (65) 100 01/15/20 05:30 121 19 90/64 (73) 100 01/15/20 05:15 121 19 94/56 (69) 100 01/15/20 05:00 114 14 87/74 (78) 99 01/15/20 04:45 105 23 79/52 (61) 100 01/15/20 04:30 104 20 101/55 (70) 100 01/15/20 04:15 110 20 100/54 (69) 01/15/20 04:00 118 01/15/20 04:00 102/45 01/15/20 04:00 102/54 01/15/20 04:00 97.8 114 21 96/50 (65) 96 01/15/20 04:00 Mechanical Ventilator 100.0 01/15/20 04:00 50 01/15/20 04:00 115 17 102/54 (70) 01/15/20 03:45 117 15 109/63 (78) 01/15/20 03:45 117 15 109/63 (78) 96 01/15/20 03:30 126 14 54/38 (43) 82 01/15/20 03:30 128 22 100 01/15/20 03:30 126 14 54/38 (43) 100 01/15/20 03:15 132 15 66/45 (52) 95 01/15/20 03:15 132 16 70/48 (55) 72 01/15/20 03:00 103/45 01/15/20 03:00 103/45 01/15/20 03:00 134 17 100/72 (81) 01/15/20 03:00 134 17 100/72 (81) 96 01/15/20 02:45 119 16 108/63 (78) 01/15/20 02:45 119 16 108/63 (78) 94 01/15/20 02:30 130 17 117/97 (104) 96 01/15/20 02:30 130 17 117/97 (104) 01/15/20 02:25 134 101/50 01/15/20 02:15 127 13 101/52 (68) 100 01/15/20 02:15 127 13 101/52 (68) 01/15/20 02:00 100/56 01/15/20 02:00 120 15 101/56 (71) 01/15/20 02:00 120 15 101/56 (71) 96 01/15/20 01:45 127 14 98/63 (75) 01/15/20 01:45 127 14 98/63 (75) 94 01/15/20 01:30 127 13 99/86 (90) 01/15/20 01:30 127 13 99/86 (90) 01/15/20 01:15 125 13 110/96 (101) 01/15/20 01:15 125 13 110/96 (101) 01/15/20 01:02 126 18 104/65 (78) 01/15/20 01:00 126 18 104/65 (78) 01/15/20 01:00 105/53 01/15/20 01:00 104/55 01/15/20 01:00 126 15 01/15/20 00:45 131 16 106/61 (76) 01/15/20 00:30 133 20 82/68 (73) 72 01/15/20 00:25 93/75 01/15/20 00:15 97.5 121 15 93/75 (81) 01/15/20 00:00 121 01/15/20 00:00 50 01/15/20 00:00 72/61 01/15/20 00:00 114 16 83/61 (68) 01/14/20 23:45 113 15 92/55 (67) 01/14/20 23:36 112 21 50 01/14/20 23:36 112 21 100 Mechanical Ventilator 50 01/14/20 23:30 115 17 96/73 (81) 01/14/20 23:15 105 16 105/68 (80) 100 01/14/20 23:00 125 14 132/87 (102) 01/14/20 23:00 Mechanical Ventilator 01/14/20 22:54 93.0 124 16 88/43 (58) 82 01/14/20 22:34 85/55 01/14/20 22:30 93.3 120 18 85/65 100 Mechanical Ventilator 01/14/20 22:30 93.3 120 18 85/65 100 Mechanical Ventilator 3.0 50 01/14/20 22:30 85/55 01/14/20 22:15 131 21 98/47 100 Mechanical Ventilator 01/14/20 22:00 127 20 93/61 100 Mechanical Ventilator 01/14/20 21:45 127 22 88/60 100 Mechanical Ventilator 01/14/20 21:34 87/72 01/14/20 21:32 85/55 01/14/20 21:30 87/55 01/14/20 21:30 118 20 87/55 100 Mechanical Ventilator 01/14/20 21:15 117 22 88/55 100 Mechanical Ventilator 01/14/20 21:00 125 24 52/41 100 Mechanical Ventilator 01/14/20 20:55 57/21 01/14/20 20:45 118 15 62/42 100 Mechanical Ventilator 01/14/20 20:30 98/61 01/14/20 20:30 93.2 118 20 98/61 100 Mechanical Ventilator 01/14/20 20:29 50 01/14/20 20:15 111 21 88/64 100 Mechanical Ventilator 01/14/20 20:14 107 18 99 Mechanical Ventilator 3.0 100 125 20 50 100 01/14/20 20:00 105 19 57/21 100 Mechanical Ventilator 01/14/20 19:55 55/38 01/14/20 19:45 118 21 55/38 100 Mechanical Ventilator 01/14/20 19:30 93.2 130 22 01/14/20 19:30 126 20 45/35 100 Mechanical Ventilator 01/14/20 19:30 45/35 01/14/20 19:15 130 23 47/25 100 Mechanical Ventilator 01/14/20 18:58 35/20 01/14/20 18:44 50/24 01/14/20 18:44 50/24 01/14/20 18:29 62/49 01/14/20 18:29 62/49 01/14/20 18:28 94.0 125 20 62/41 99 Mechanical Ventilator 01/14/20 17:56 81/49 01/14/20 17:55 107 20 81/49 99 Mechanical Ventilator 01/14/20 17:20 63/50 01/14/20 17:20 63/50 01/14/20 17:17 105 18 63/50 99 Mechanical Ventilator 01/14/20 16:47 94 18 60/24 99 Mechanical Ventilator 01/14/20 16:46 60/21 01/14/20 16:34 79 18 100 01/14/20 16:27 85 30 35/15 96 Mechanical Ventilator 01/14/20 16:04 36/26 01/14/20 15:00 93.5 94 14 64/33 100 Room Air 01/14/20 14:01 80 14 Room Air 01/14/20 14:01 97.9 80 14 80/35 100 Room Air 01/14/20 13:00 97.9 95 24 117/93 (101) 94 Nasal Cannula 3.0 Intake and Output 01/14/20 01/15/20 19:00 07:00 Intake Total 3854.820 ml Output Total 50 ml 135 ml Balance -50 ml 3719.820 ml Intake Oral 0 ml IV Total 3287.820 ml Blood Product 567 ml Output Urine Total 50 ml 135 ml Laboratory Tests 01/14/20 13:10: White Blood Count 6.4, Red Blood Count 3.82L, Hemoglobin 8.7L, Hematocrit 29.3L , Mean Corpuscular Volume 77L, Mean Corpuscular Hemoglobin 22.8L, Mean Corpuscular Hemoglobin Concent 29.7L, Red Cell Distribution Width 22.1H, Platelet Count 141L, Mean Platelet Volume 6.0L, Neutrophils (%) (Auto) 60.8, Lymphocytes (%) (Auto) 26.0, Monocytes (%) (Auto) 11.3H, Eosinophils (%) (Auto) 0.0, Basophils (%) (Auto) 2.0, Prothrombin Time 16.7H, Prothromb Time International Ratio 1.6H, Activated Partial Thromboplast Time 35H, D-Dimer 1.13H , Urine Color Brown, Urine Appearance Slightly cloudy, Urine pH 5, Urine Specific [place] 1.015, Urine Protein 2+H, Urine Glucose (UA) Negative, Urine Ketones 1+H, Urine Blood 1+H, Urine Nitrite PositiveH, Urine Bilirubin 2+H, Urine Ictotest Negative, Urine Urobilinogen 4H, Urine Leukocyte Esterase 1+H, Urine RBC 2-4H, Urine WBC 2-4, Urine Squamous Epithelial Cells ModerateH, Urine Amorphous Sediment FewH, Urine Bacteria Few, Urine Hyaline Casts 5-10H, Urine Mucus ModerateH, Sodium Level 137, Potassium Level 5.9H, Chloride Level 107, Carbon Dioxide Level 20L, Anion Gap 10, Blood Urea Nitrogen 60H, Creatinine 2.5H , Estimat Glomerular Filtration Rate 19.4, Glucose Level 95, Lactic Acid Level 3.10H, Calcium Level 7.3L, Ferritin 35, Total Bilirubin 0.5, Aspartate Amino Transf (AST/SGOT) 31, Alanine Aminotransferase (ALT/SGPT) 36, Alkaline Phosphatase 120H, Lactate Dehydrogenase 237H, Total Creatine Kinase 89, Creatine Kinase MB 6.8H, Creatine Kinase MB Relative Index 7.6, Troponin I 0.000 , C-Reactive Protein, Quantitative < 0.4, Pro-B-Type Natriuretic Peptide 7266H, Total Protein 5.8L, Albumin 1.2L, Globulin 4.6, Albumin/Globulin Ratio 0.3L, Amylase Level 23L 01/14/20 15:10: Lactic Acid Level 1.90 01/14/20 16:16: POC Whole Blood Glucose [Pending] 01/14/20 17:45: White Blood Count 5.4, Red Blood Count 1.62L, Hemoglobin 3.7#*L, Hematocrit 12.5 #L, Mean Corpuscular Volume 77L, Mean Corpuscular Hemoglobin 23.1L, Mean Corpuscular Hemoglobin Concent 29.8L, Red Cell Distribution Width 23.2H, Platelet Count 100L, Mean Platelet Volume 6.5, Neutrophils (%) (Auto) , Lymphocytes (%) (Auto) , Monocytes (%) (Auto) , Eosinophils (%) (Auto) , Basophils (%) (Auto) , Differential Total Cells Counted 100, Neutrophils % ( Manual) 91H, Lymphocytes % (Manual) 5L, Monocytes % (Manual) 4, Eosinophils % ( Manual) 0, Basophils % (Manual) 0, Band Neutrophils 0, Nucleated Red Blood Cells 2, Platelet Estimate DecreasedL, Platelet Morphology Normal, Polychromasia 2+, Hypochromasia 3+, Anisocytosis 3+, Microcytosis 2+ 01/14/20 19:53: Arterial Blood pH 7.253L, Arterial Blood Partial Pressure CO2 22.0*L, Arterial Blood Partial Pressure O2 283.7H, Arterial Blood HCO3 9.5*L, Arterial Blood Oxygen Saturation 98.6, Arterial Blood Base Excess -16.2*L, Danny Test Positive Height (Feet): 4 Height (Inches): 11.00 Weight (Pounds): 87 General Appearance: lethargic EENT: normal ENT inspection Neck: supple Cardiovascular: normal rate Respiratory/Chest: decreased breath sounds Abdomen: hypoactive bowel sounds Extremities: non-tender Noah Eaton MD Jan 15, 2020 07:19
--- NOTE | 2020-01-15 07:30 | NUR ---
Nurse Note: Report received from NORIS Ortiz. Pt awake, responds to voice, tracking with her eyes. Pt Sinus Tachycardia on satellite project site monitor; HR 127. Pt has a RT IJ TLC, infusing Phenylephrine 240 mcg/min and Levophed 30 mcg/min; currently awaiting Vasopressin from pharmacy as B/P remains low- 77/55. Pt currently Pt on mechanical vent; 6.5 ETT, 22 cm at the lip line with vent settings of AC 18, TV 400, 50% FIO2. Pt has a vasquez cath present; urine output noted. Pt has swollen bilateral feet. Blood transfusion still running-started on previous shift. Repeat CBC ordered for 2 hours after transfusion complete. Bed locked and in lowest position with call light within reach. Will resume plan of care.
--- NOTE | 2020-01-15 07:44 | NUR ---
NURSE HAND-OFF REPORT: Latest Vital Signs: Temperature 97.8 , Pulse 125 , B/P 90 /60 , Respiratory Rate 18 , O2 SAT 100 , Mechanical Ventilator, O2 Flow Rate 100.0 . Vital Sign Comment: EKG Rhythm: Sinus Tachycardia Rhythm change?: N MD Notified?: - MD Response: Latest Rogers Fall Score: 50 Fall Risk: High Risk Safety Measures: Call light Within Reach, Bed Alarm Zone 3, Side Rails Side Rails x3, Bed position Low and Locked. Fall Precautions: [place] Door Sign Report given to josefina frost using sbar.
[2020-01-15] MEDS: Vasopressin 100 UNITS in NS 95 ML IV SCH ×2 (08:00→14:03)
--- NOTE | 2020-01-15 08:35 | NUR ---
NURSE NOTES: PRBC transfusion completed at this time. Temp: 99.3, P: 111, B/P: 88/73. No adverse reaction noted.
--- NOTE | 2020-01-15 08:57 | Cardiac Electrophysiology PN ---
Subjective Subjective [id number] Objective Last 24 Hour Vital Signs Date Time Temp Pulse Resp B/P (MAP) Pulse Ox O2 Delivery O2 Flow Rate FiO2 01/15/20 07:26 125 22 01/15/20 07:20 111 22 100 01/15/20 06:45 125 18 90/60 (70) 100 01/15/20 06:30 123 16 75/56 (62) 98 01/15/20 06:15 121 17 88/61 (70) 98 01/15/20 06:00 132 17 92/49 (63) 98 01/15/20 06:00 90/40 01/15/20 05:59 132 102/42 01/15/20 05:45 121 17 94/50 (65) 100 01/15/20 05:30 121 19 90/64 (73) 100 01/15/20 05:15 121 19 94/56 (69) 100 01/15/20 05:00 114 14 87/74 (78) 99 01/15/20 04:45 105 23 79/52 (61) 100 01/15/20 04:30 104 20 101/55 (70) 100 01/15/20 04:15 110 20 100/54 (69) 01/15/20 04:00 118 01/15/20 04:00 102/45 01/15/20 04:00 102/54 01/15/20 04:00 Mechanical Ventilator 100.0 01/15/20 04:00 97.8 114 21 96/50 (65) 96 01/15/20 04:00 Mechanical Ventilator 100.0 01/15/20 04:00 50 01/15/20 04:00 115 17 102/54 (70) 01/15/20 03:45 117 15 109/63 (78) 01/15/20 03:45 117 15 109/63 (78) 96 01/15/20 03:30 126 14 54/38 (43) 82 01/15/20 03:30 128 22 100 01/15/20 03:30 126 14 54/38 (43) 100 01/15/20 03:15 132 15 66/45 (52) 95 01/15/20 03:15 132 16 70/48 (55) 72 01/15/20 03:00 103/45 01/15/20 03:00 103/45 01/15/20 03:00 134 17 100/72 (81) 01/15/20 03:00 134 17 100/72 (81) 96 01/15/20 02:45 119 16 108/63 (78) 01/15/20 02:45 119 16 108/63 (78) 94 01/15/20 02:30 130 17 117/97 (104) 96 01/15/20 02:30 130 17 117/97 (104) 01/15/20 02:25 134 101/50 01/15/20 02:15 127 13 101/52 (68) 100 01/15/20 02:15 127 13 101/52 (68) 01/15/20 02:00 100/56 01/15/20 02:00 120 15 101/56 (71) 01/15/20 02:00 120 15 101/56 (71) 96 01/15/20 01:45 127 14 98/63 (75) 01/15/20 01:45 127 14 98/63 (75) 94 01/15/20 01:30 127 13 99/86 (90) 01/15/20 01:30 127 13 99/86 (90) 01/15/20 01:15 125 13 110/96 (101) 01/15/20 01:15 125 13 110/96 (101) 01/15/20 01:02 126 18 104/65 (78) 01/15/20 01:00 126 18 104/65 (78) 01/15/20 01:00 105/53 01/15/20 01:00 104/55 01/15/20 01:00 126 15 01/15/20 00:45 131 16 106/61 (76) 01/15/20 00:30 133 20 82/68 (73) 72 01/15/20 00:25 93/75 01/15/20 00:15 97.5 121 15 93/75 (81) 01/15/20 00:00 121 01/15/20 00:00 50 01/15/20 00:00 72/61 01/15/20 00:00 Mechanical Ventilator 100.0 01/15/20 00:00 114 16 83/61 (68) 01/14/20 23:45 113 15 92/55 (67) 01/14/20 23:36 112 21 50 01/14/20 23:36 112 21 100 Mechanical Ventilator 50 01/14/20 23:30 115 17 96/73 (81) 01/14/20 23:15 105 16 105/68 (80) 100 01/14/20 23:00 125 14 132/87 (102) 01/14/20 23:00 Mechanical Ventilator 01/14/20 22:54 93.0 124 16 88/43 (58) 82 01/14/20 22:34 85/55 01/14/20 22:30 93.3 120 18 85/65 100 Mechanical Ventilator 01/14/20 22:30 93.3 120 18 85/65 100 Mechanical Ventilator 3.0 50 01/14/20 22:30 85/55 01/14/20 22:15 131 21 98/47 100 Mechanical Ventilator 01/14/20 22:00 127 20 93/61 100 Mechanical Ventilator 01/14/20 21:45 127 22 88/60 100 Mechanical Ventilator 01/14/20 21:34 87/72 01/14/20 21:32 85/55 01/14/20 21:30 87/55 01/14/20 21:30 118 20 87/55 100 Mechanical Ventilator 01/14/20 21:15 117 22 88/55 100 Mechanical Ventilator 01/14/20 21:00 125 24 52/41 100 Mechanical Ventilator 01/14/20 20:55 57/21 01/14/20 20:45 118 15 62/42 100 Mechanical Ventilator 01/14/20 20:30 98/61 01/14/20 20:30 93.2 118 20 98/61 100 Mechanical Ventilator 01/14/20 20:29 50 01/14/20 20:15 111 21 88/64 100 Mechanical Ventilator 01/14/20 20:14 107 18 99 Mechanical Ventilator 3.0 100 125 20 50 100 01/14/20 20:00 105 19 57/21 100 Mechanical Ventilator 01/14/20 19:55 55/38 01/14/20 19:45 118 21 55/38 100 Mechanical Ventilator 01/14/20 19:30 93.2 130 22 01/14/20 19:30 126 20 45/35 100 Mechanical Ventilator 01/14/20 19:30 45/35 01/14/20 19:15 130 23 47/25 100 Mechanical Ventilator 01/14/20 18:58 35/20 01/14/20 18:44 50/24 01/14/20 18:44 50/24 01/14/20 18:29 62/49 01/14/20 18:29 62/49 01/14/20 18:28 94.0 125 20 62/41 99 Mechanical Ventilator 01/14/20 17:56 81/49 01/14/20 17:55 107 20 81/49 99 Mechanical Ventilator 01/14/20 17:20 63/50 01/14/20 17:20 63/50 01/14/20 17:17 105 18 63/50 99 Mechanical Ventilator 01/14/20 16:47 94 18 60/24 99 Mechanical Ventilator 01/14/20 16:46 60/21 01/14/20 16:34 79 18 100 01/14/20 16:27 85 30 35/15 96 Mechanical Ventilator 01/14/20 16:04 36/26 01/14/20 15:00 93.5 94 14 64/33 100 Room Air 01/14/20 14:01 80 14 Room Air 01/14/20 14:01 97.9 80 14 80/35 100 Room Air 01/14/20 13:00 97.9 95 24 117/93 (101) 94 Nasal Cannula 3.0 Intake and Output 01/14/20 01/15/20 19:00 07:00 Intake Total 3987.820 ml Output Total 50 ml 135 ml Balance -50 ml 3852.820 ml Intake Oral 0 ml IV Total 3420.820 ml Blood Product 567 ml Output Urine Total 50 ml 135 ml Laboratory Tests Test 01/14/20 13:10 01/14/20 15:10 01/14/20 16:16 01/14/20 17:45 White Blood Count 6.4 K/UL (4.8-10.8) 5.4 K/UL (4.8-10.8) Red Blood Count 3.82 M/UL (4.20-5.40) L 1.62 M/UL (4.20-5.40) L Hemoglobin 8.7 G/DL (12.0-16.0) L 3.7 G/DL (12.0-16.0) Hematocrit 29.3 % (37.0-47.0) L 12.5 % (37.0-47.0) #L Mean Corpuscular Volume 77 FL (80-99) L 77 FL (80-99) L Mean Corpuscular Hemoglobin 22.8 PG (27.0-31.0) L 23.1 PG (27.0-31.0) L Mean Corpuscular Hemoglobin Concent 29.7 G/DL (32.0-36.0) L 29.8 G/DL (32.0-36.0) L Red Cell Distribution Width 22.1 % (11.6-14.8) H 23.2 % (11.6-14.8) H Platelet Count 141 K/UL (150-450) L 100 K/UL (150-450) L Mean Platelet Volume 6.0 FL (6.5-10.1) L 6.5 FL (6.5-10.1) Neutrophils (%) (Auto) 60.8 % (45.0-75.0) % (45.0-75.0) Lymphocytes (%) (Auto) 26.0 % (20.0-45.0) % (20.0-45.0) Monocytes (%) (Auto) 11.3 % (1.0-10.0) H % (1.0-10.0) Eosinophils (%) (Auto) 0.0 % (0.0-3.0) % (0.0-3.0) Basophils (%) (Auto) 2.0 % (0.0-2.0) % (0.0-2.0) Prothrombin Time 16.7 SEC (9.30-11.50) H Prothromb Time International Ratio 1.6 (0.9-1.1) H Activated Partial Thromboplast Time 35 SEC (23-33) H D-Dimer 1.13 mg/L FEU (0.00-0.49) H Urine Color Brown Urine Appearance Slightly cloudy Urine pH 5 (4.5-8.0) Urine Specific [place] 1.015 (1.005-1.035) Urine Protein 2+ (NEGATIVE) H Urine Glucose (UA) Negative (NEGATIVE) Urine Ketones 1+ (NEGATIVE) H Urine Blood 1+ (NEGATIVE) H Urine Nitrite Positive (NEGATIVE) H Urine Bilirubin 2+ (NEGATIVE) H Urine Ictotest Negative (NEGATIVE) Urine Urobilinogen 4 MG/DL (0.0-1.0) H Urine Leukocyte Esterase 1+ (NEGATIVE) H Urine RBC 2-4 /HPF (0 - 2) H Urine WBC 2-4 /HPF (0 - 2) Urine Squamous Epithelial Cells Moderate /LPF (NONE/OCC) H Urine Amorphous Sediment Few /LPF (NONE) H Urine Bacteria Few /HPF (NONE) Urine Hyaline Casts 5-10 /LPF (NONE) H Urine Mucus Moderate /LPF (NONE/OCC) H Sodium Level 137 MMOL/L (136-145) Potassium Level 5.9 MMOL/L (3.5-5.1) H Chloride Level 107 MMOL/L (98-107) Carbon Dioxide Level 20 MMOL/L (21-32) L Anion Gap 10 mmol/L (5-15) Blood Urea Nitrogen 60 mg/dL (7-18) H Creatinine 2.5 MG/DL (0.55-1.30) H Estimat Glomerular Filtration Rate 19.4 mL/min (>60) Glucose Level 95 MG/DL (74-106) Lactic Acid Level 3.10 mmol/L (0.4-2.0) H 1.90 mmol/L (0.66-2.22) Calcium Level 7.3 MG/DL (8.5-10.1) L Ferritin 35 NG/ML (8-388) Total Bilirubin 0.5 MG/DL (0.2-1.0) Aspartate Amino Transf (AST/SGOT) 31 U/L (15-37) Alanine Aminotransferase (ALT/SGPT) 36 U/L (12-78) Alkaline Phosphatase 120 U/L (46-116) H Lactate Dehydrogenase 237 U/L (81-234) H Total Creatine Kinase 89 U/L (26-308) Creatine Kinase MB 6.8 NG/ML (0.0-3.6) H Creatine Kinase MB Relative Index 7.6 Troponin I 0.000 ng/mL (0.000-0.056) C-Reactive Protein, Quantitative < 0.4 mg/dL (0.00-0.90) Pro-B-Type Natriuretic Peptide 7266 pg/mL (0-125) H Total Protein 5.8 G/DL (6.4-8.2) L Albumin 1.2 G/DL (3.4-5.0) L Globulin 4.6 g/dL Albumin/Globulin Ratio 0.3 (1.0-2.7) L Amylase Level 23 U/L (25-115) L POC Whole Blood Glucose Pending Differential Total Cells Counted 100 Neutrophils % (Manual) 91 % (45-75) H Lymphocytes % (Manual) 5 % (20-45) L Monocytes % (Manual) 4 % (1-10) Eosinophils % (Manual) 0 % (0-3) Basophils % (Manual) 0 % (0-2) Band Neutrophils 0 % (0-8) Nucleated Red Blood Cells 2 /100 WBC Platelet Estimate Decreased L Platelet Morphology Normal Polychromasia 2+ Hypochromasia 3+ Anisocytosis 3+ Microcytosis 2+ Test 01/14/20 19:53 Arterial Blood pH 7.253 (7.350-7.450) Arterial Blood Partial Pressure CO2 22.0 mmHg (35.0-45.0) *L Arterial Blood Partial Pressure O2 283.7 mmHg (75.0-100.0) H Arterial Blood HCO3 9.5 mmol/L (22.0-26.0) *L Arterial Blood Oxygen Saturation 98.6 % (95-100) Arterial Blood Base Excess -16.2 (-2-2) *L Danny Test Positive Microbiology Date/Time Source Procedure Growth Status 01/14/20 13:10 Nasopharynx SARS-CoV-2 RdRp Gene Assay - Final Complete Danial Vasques MD Jan 15, 2020 08:57
[2020-01-15] MEDS ORDERED: Phytonadione 1 MG in D5W 55 ML IVPB ONE (09:00)
--- NOTE | 2020-01-15 09:00 | NUR ---
NURSE NOTES: Pt's son, Garrett, on the unit, visiting from outside the door. Updated him on pt's current condition.
--- NOTE | 2020-01-15 09:28 | NUR ---
NURSE NOTES: Dr Frost at bedside assessing pt. Updated him on pt's current condition. New physician consults ordered.
[2020-01-15] MEDS: Pantoprazole Inj IVP SCH ×2 (09:42→21:00)
--- NOTE | 2020-01-15 10:10 | NUR ---
NURSE NOTES: tap and die maker technician at bedside performing venous duplex. Dr Young on the unit, updated him on pt's current condition. No new orders given.
--- NOTE | 2020-01-15 10:40 | Consultation ---
Consult Note Consult Note I just received a message from Dr. Frost to evaluate the patient for kidney failure. I called ICU and discussed with NORIS Garcia. Patient did not have any blood draw today yet since she was being transfused. I will evaluate the patient as soon as today's blood results are ready. Full note will be followed then. 4 PM: Patient seen in ICU. Discussed with NORIS Garcia. Patient received 2 units of blood transfusion and is due for the third unit shortly. Patient is on 3 pressors. Patient comes from home and has wounds all over her body. Emergency room note: 65-year-old female presents the ED for evaluation. Brought in by EMS from home. She was hypotensive. Increased lethargy over the last few days according to son. Home health nurse check blood pressure today and states it was low. Son states patient has a history of anemia. Patient is more confused than usual. States she lost a lot of weight at least recently as she is not eating or drinking. Unable to provide any additional additional history at this time. No other aggravating relieving factors. No other associated symptoms No Known Allergies (Unverified , 10/13/15) COVID-19 Screening Contact w/high risk pt: No Experienced COVID-19 symptoms?: No COVID-19 Testing performed [employer] AGENT: No Assessment/Plan 65-year-old female presents with severe low MCV anemia with hemoglobin of 3.7. Acute renal failure, EULALIA Severe malnutrition serum albumin of 0.9 Acute respiratory failure Septic shock Multiple decubiti Transfusion Hemodynamic support Antibiotics Monitor renal parameters Avoid nephrotoxic's Prognosis poor Patient full code Per orders Gene Miguel MD Jan 15, 2020 10:40
[2020-01-15 10:55] LABS: HEMATOCRIT 22.2 % (37.0-47.0); HEMOGLOBIN 7.1 G/DL (12.0-16.0); MEAN CORPUSCULAR VOLUME 84 FL (80-99); PLATELET COUNT 76 K/UL (150-450); RED BLOOD COUNT 2.64 M/UL (4.20-5.40); RED CELL DISTRIBUTION WIDTH 16.8 % (11.6-14.8); WHITE BLOOD COUNT 13.4 K/UL (4.8-10.8)
--- NOTE | 2020-01-15 11:05 | NUR ---
Social Work Patient is currently intubated, sedated in the ICU.This SW spoke with son, Francisco Spears ([phone]) to provide emotional support (son expressing worry about patients current condition and whether she will survive). Patient lives with spouse and father in law, home bound-wheelchair bound and required assistance from [facility] caregiver (daily-six hours per day) and sons, family all assisting patient at home. Family requesting full code, full treatment at this time; pending progress. Son explains patient was refusing to go the MD prior, but had home care ([facility]) for wound care at home. MD had visited her there, but it had been some time ago, according to son. SW to follow for support as needed.
[2020-01-15 11:17] LABS: INR 2.5 (0.9-1.1)
--- NOTE | 2020-01-15 11:18 | NUR ---
RADIOLOGY DEPT., CHEST AND ABDOMEN X-RAYS COMPLETED.-P.DYE
[2020-01-15 11:27] LABS: ALANINE AMINOTRANSFERASE 44 U/L (12-78); ALBUMIN 0.9 G/DL (3.4-5.0); ALBUMIN/GLOBULIN RATIO 0.4 (1.0-2.7); ALKALINE PHOSPHATASE 66 U/L (46-116); ANION GAP 16 mmol/L (5-15); ASPARTATE AMINO TRANSFERASE 77 U/L (15-37); BLOOD UREA NITROGEN 45 mg/dL (7-18); CALCIUM 6.6 MG/DL (8.5-10.1); CHLORIDE 105 MMOL/L (98-107); CREATINE KINASE 542 U/L (26-308); CREATININE 2.1 MG/DL (0.55-1.30); PHOSPHORUS 6.1 MG/DL (2.5-4.9); POTASSIUM 4.6 MMOL/L (3.5-5.1); SODIUM 131 MMOL/L (136-145)
--- NOTE | 2020-01-15 11:33 | Diagnostic Imaging Report ---
Procedure: XRAY Chest 1v Reason for study: Reason For Exam: SOB Comparison films: 01/14/2020. FINDINGS: Endotracheal tube and right central venous catheter remain in place. New left lung alveolar densities noted likely new infiltrates. No significant change of lobulated soft tissue density at the right apex. Cardiac and mediastinal silhouette are within normal limits. Small left effusion noted. The bony thorax appear unremarkable. IMPRESSION: New left lung infiltrates and small effusion. No change right apical lobulated soft tissue density.
[2020-01-15 11:35] LABS: CARBON DIOXIDE 10 MMOL/L (21-32)
--- NOTE | 2020-01-15 11:36 | Diagnostic Imaging Report ---
EXAM: XRAY Abdomen 1v HISTORY: Abdominal pain COMPARISON: None. TECHNIQUE: Frontal view of the abdomen obtained. FINDINGS: There is a nonspecific bowel gas pattern. Surgical sutures noted in the right lower quadrant. No mass or mass effect seen. No definite pathologic calcifications identified. There is no sign of free air. Patient has a left hip prosthesis. IMPRESSION: NONSPECIFIC BOWEL GAS PATTERN. POST SURGICAL CHANGES RIGHT LOWER QUADRANT.
--- NOTE | 2020-01-15 11:44 | Consultation ---
DATE OF CONSULTATION: 01/15/2020 PULMONARY CONSULTATION HISTORY OF PRESENT ILLNESS: This is a 65-year-old female who was brought to the hospital with altered mental status. She was hypotensive and lethargic per family. The patient has history of chronic anemia. There is a history that she has lost weight. The patient was subsequently seen and worked up in the ER. Due to respiratory compromise, she was intubated by the ER physician. Overnight, the patient has been hypotensive and currently is maxed out on two pressors with blood pressure being 80/40. Remainder workup yesterday was notable for a hemoglobin of 8.7, yesterday was 3.7, likely representing a laboratory error. Potassium 5.9, creatinine 2.5. ABG, pH 7.20, pCO2 19, pO2 83. Coags show elevated INR and D-dimer. The patient underwent COVID-19 testing which was negative. The patient has been transfused as well. At this time, the patient remains intubated and has been seen by Cardiology, GI and General Surgery. PAST MEDICAL HISTORY: Not known except for history of anemia. CURRENT MEDICATIONS: Dopamine, Levophed, Protonix, Zosyn. PHYSICAL EXAMINATION: GENERAL: Reveals a 65-year-old female, intubated. VITAL SIGNS: Blood pressure 90/40, heart rate 104, respirations 20, O2 saturation 100%. Current vent settings AC 16, tidal volume 400, FiO2 of 60%. HEENT: Unremarkable. CHEST: Decreased breath sounds bilaterally. ABDOMEN: Soft. EXTREMITIES: There is no edema. LABORATORY AND DIAGNOSTIC DATA: Most recent lab testing discussed above. Lactic acid 3.1, now 1.9. IMPRESSION: 1. Shock, likely septic. 2. Anemia, need to repeat JAMEY. 3. Hypovolemic shock. 4. Renal failure. 5. Lactic acidemia. 6. Respiratory failure. DISCUSSION: Admit to the ICU. Continue high-dose pressors. We will continue vent as is. Broad-spectrum antibiotics. GI following. Transfusion as needed. Joey Young M.D. DR: Stephen JOB#: [id number] CC:
--- NOTE | 2020-01-15 11:45 | NUR ---
NURSE NOTES: 3rd unit PRBC transfusion started at this time. Temp: 99.9, P:101, B/P: 88/59.
--- NOTE | 2020-01-15 11:54 | Diagnostic Imaging Report ---
EXAM: ULTRASOUND Venous Duplex Scan Juan Leg CLINICAL HISTORY: Leg pain and edema. Contracted lower extremities.. COMPARISON: None TECHNIQUE: Doppler examination include grayscale images obtained with and without compression, and color and spectral doppler analysis. FINDINGS: Doppler examination shows normal spontaneity, phasicity, compressibility in the bilateral lower extremities. There is no thrombus identified by grayscale. Normal color and spectral flow is identified. There is no evidence of valvular incompetency or insufficiency. IMPRESSION: NO EVIDENCE OF DVT.
[2020-01-15] MEDS ORDERED: Piperacillin/Tazobactam 3.375 GM in NS 110 ML IVPB SCH (12:00)
--- NOTE | 2020-01-15 12:00 | NUR ---
NURSE NOTES: 15 post start of transfusion. Pt tolerating well, no reaction noted. Temp: 99.6, P: 109, B/P: 90/50.
--- NOTE | 2020-01-15 12:54 | NUR ---
RD ASSESSMENT & RECOMMENDATIONS SEE CARE ACTIVITY FOR COMPLETE ASSESSMENT DAILY ESTIMATED NEEDS: Needs based on Critical care, wounds, underweight/ 40kg 25-30 kcals/kg 2218-3777 total kcals 1.25-2 g protein/kg 50-80 g total protein 20-25 mL/kg 800-1000 total fluid mLs NUTRITION DIAGNOSIS: Swallowing difficulty R/T respiratory failure as evidenced by pt orally intubated, NGT in place, hypotensive on pressor support, NPO. CURRENT TF: NPO PO DIET RECOMMENDATIONS: LICENSE REGISTRATION EXAMINER EVAL POST EXTUBATION ENTERAL NUTRITION RECOMMENDATIONS: WHEN HEMODYNAMICALLY STABLE TO FEED -> Vital AF 1.2 @ 40ml/hr x 24 hrs to provide 960ml, 1152kcal, 72g prot, 779ml free water * WHEN HEMODYNAMICALLY STABLE AND MEDICALLY APPROPRIATE TO FEED -> initiate Vital AF 1.2 @ 10ml/hr x 6hrs, advance 10ml q 4-6 hrs as tolerated to goal -> HOB over 30 degreeds/ water flush per MD WITHOUT HEMODYNAMIC STABLITY: rec trophic feeding of Vital AF 1.2 @ 10ml/hr (IF ABLE TO MAINTAIN HOB > 30 DEGREES) to maintain gut integrity ADDITIONAL RECOMMENDATIONS: * Cailbrated bedscale wt * Monitor hemodynamic stability: NE @30mcg, PHE @ 240mcg * Monitor BGs, need for NISS * Monitor renal fxn and lytes: creat trending down low mag (rec repletion), elev phos * Wound healing: add Vit C 500mg QD + ZnSO4 220mg QD x 10 days Gael BID w/ TF order, f/up w/ WC eval
--- NOTE | 2020-01-15 13:30 | NUR ---
NURSE NOTES: PRBC transfusion completed at this time. Temp: 99.6, P: 120, B/P 78/55. No transfusion reaction noted.
--- NOTE | 2020-01-15 14:00 | Cardiology Report ---
APPROVED REPORT EXAM: Two-dimensional and M-mode echocardiogram with Doppler and color Doppler. INDICATION Congestive Heart Failure M-Mode DIMENSIONS IVSd0.8 (0.7-1.1cm)Left Atrium (MM)2.0 (1.6-4.0cm) LVDd3.4 (3.5-5.6cm)Aortic Root3.0 (2.0-3.7cm) PWd0.8 (0.7-1.1cm)Aortic Cusp Exc.1.9 (1.5-2.0cm) IVSs1.1 cmEPSS0.3 (>1.0cm) LVDs2.1 (2.5-4.0cm) PWs1.5 cm <Conclusion> Normal left ventricular chamber size, systolic function and wall motion. Left ventricular ejection fraction estimated to be 65-70%. Borderline left ventricular hypertrophy by 2-D. Anterior Echo-free space, may be due to pericardial fat or effusion. All other cardiac chamber sizes are within normal limits. Moderate focal aortic valve sclerosis with adequate cusp excursion. Thickened mitral valve leaflets with normal excursion. Mitral annulus and aortic root calcification. Pulmonic valve not well visualized. Normal tricuspid valve structure. IVC at normal size with slight physiologic collapse. A color flow and spectral Doppler study was performed and revealed: Trace mitral regurgitation. Mitral inflow indicates normal left ventricular diastolic function. Moderate tricuspid regurgitation. Tricuspid systolic velocities suggests peak right ventricular systolic pressure of 46 mmHg, consistent with moderate pulmonary hypertension.
--- NOTE | 2020-01-15 14:20 | Cardiology Report ---
APPROVED REPORT EKG Measurement Heart [id number] CT 130P95 [id number] <Conclusion> Normal sinus rhythm Anterior infarct, age undetermined Abnormal ECG
--- NOTE | 2020-01-15 14:27 | NUR ---
CASE MANAGEMENT: INITIAL REVIEW 65YR OLD FEMALE BIBA FROM HOME CC:ALTERED MENTAL STATUS SI:SHOCK . KIDNEY STONE . CVA . ANEMIA . RESPIRATORY FAILURE . ENCEPHALOPATHY . HYPOTENSIVE . CHOLELITHIASIS 97.8 95 117/93 94% NC 3L H/H 3.7/12.5 PLT 100 K+ 5.9 BUN/CREAT 60/2.5 CA+ 7.3 ALKP 120 LDH 237 CK-MB 6.8 BNP 7266 ALB 1.2 PT/INR 16.7/1.6 PTT 35 D-DIMER 1.13 ABG: pH 7.253 pCO2 22.0 pO2 283.7 HCO3 9.5 BASE EXCESS -16.2 IS:IVF NS BOLUS X2 IV ROCEPHIN X1 IV ALBUMIN HUMAN X1 IV LEVOPHED PROTOCOL CHEST X-RAY-No radiographic evidence of acute cardiopulmonary disease CT HEAD-Low attenuation within the left basal ganglia and left frontal periventricular white matter. An acute infarct could have this appearance in the appropriate clinical setting. Consider MRI for further evaluation. CENTRALLY INS NON-TUNN CV CATH ~SUCCESSFUL PLACEMENT XRAY Chest 1v-Satisfactory endotracheal intubation.Obscuration of the right apex and increased density of the right paratracheal stripe. Given known history of difficulty in central line placement, possibility of mediastinal hematoma or hemothorax not excluded. Recommend further evaluation with CT. CT Chest w Fpgopxmt-Ooucecu-zcbqd masslike abnormal soft tissue at the right apex and extending along the medial aspect of the right upper lobe. A few foci of pleural gas on the right. Differential is hematoma versus malignancy. Diffuse anasarca and upper abdominal mesenteric/omental edema. Hyperemia of the esophageal and visualized upper abdominal GI tract. This can be seen in the setting of shock. CT Abdomen Pelvis WO Contrast-Study severely limited by the patient's contracture deformity and marked mesenteric/soft tissue edema which obscures all of the fat planes within the abdomen and pelvis. Moderate right hydronephrosis. No ureteral dilatation. 3 mm stone within the right hemipelvis (image [id number]) is favored extra-ureteral. Postsurgical changes within the small bowel and colon. The bowel is very poorly visualized. Hepatic steatosis. Cholelithiasis. Left lower lobe atelectasis and small left pleural effusion. Severe degenerative changes of the right hip. BLOOD TRANSFUSION X2 \: INTENSIVE CARE UNIT DCP: HOME WHEN STABLE CASE MANAGEMENT: REVIEW 01/15/20 SI:SHOCK . KIDNEY STONE . CVA . ANEMIA . RESPIRATORY FAILURE . ENCEPHALOPATHY . HYPOTENSIVE . CHOLELITHIASIS 99.6 133 18 78/55 100% MECHANICAL VENT WBC 13.4 H/H 7.1/22.2 PLT 76 K+ 5.9 BUN/CREAT 60/2.5 CA+ 7.3 ALKP 120LDH 237 CK-MB 6.8 BNP 7266 ALB 1.2 ABG: pH 7.207 pCO2 19.5 pO2 283.2 HCO3 7.6 BASE EXCESS -18.6 IS:PHENYLEPHRINE PROTOCOL LEVOPHED PROTOCOL DOPAMINE PROTOCOL PITRESSIN PROTOCOL IV NS @75ML/HR IV ZOSYN BID IV PROTONIX BID XRAY ABD- NONSPECIFIC BOWEL GAS PATTERN. POST SURGICAL CHANGES RIGHT LOWER QUADRANT. XRAY Chest 1v-New left lung infiltrates and small effusion. No change right apical lobulated soft tissue density. ECHOCARDIOGRAM VENOUS DUPLEX-NO EVIDENCE OF DVT. \: INTENSIVE CARE UNIT DCP: HOME WHEN STABLE
--- NOTE | 2020-01-15 14:30 | NUR ---
NURSE NOTES: Wound care nurseStefania, at bedside assessing pt. All skin assessed, wounds dressed, and bony prominences covered with optifoam. Pt put on a P200 mattress. Pt turned and repositioned.
--- NOTE | 2020-01-15 15:13 | NUR ---
*-* INSURANCE *-* UPDATED CLINICALS AND REVIEWS HAVE BEEN FAXED TO: # [phone] FAX# [phone] REVIEWS/CLINICALS
--- NOTE | 2020-01-15 15:28 | Diagnostic Imaging Report ---
EXAM: XRAY Abdomen 1v HISTORY: NG tube placement. COMPARISON: 01/15/2020. TECHNIQUE: Frontal view of the abdomen obtained. FINDINGS: There is a new NG tube in the stomach. No change of nonspecific bowel gas pattern noted. Some residual contrast identified in the right renal collecting system. No definite pathologic calcifications identified. There is no sign of free air. Bilateral alveolar infiltrates and effusions noted. IMPRESSION: NG TUBE IN GOOD POSITION. OTHERWISE NO SIGNIFICANT CHANGE.
--- NOTE | 2020-01-15 15:44 | Consultation ---
DATE OF CONSULTATION: 01/15/2020 CARDIOLOGY CONSULTATION CONSULTING PHYSICIAN: Danial Vasques M.D. REFERRING PHYSICIAN: Stepan Frost M.D. REASON FOR CONSULTATION: Hypotension. HISTORY OF PRESENT ILLNESS: The patient is a 65-year-old lady who does not see doctors and does not take any medication at home, was brought in by paramedics from home as she was found hypotensive by the home health nurse. The blood pressure was in the 50s. The patient has history of anemia and it was found the patient was more confused than usual. The patient has lost a little weight and has not been eating or drinking much. The patient never had a G-tube. The patient was seen in the ER and was noted to have a hemoglobin of only 3.7. The patient received multiple units of blood transfusions, was in the intensive care unit, intubated and is on Levophed and Justin-Synephrine. At the time of my evaluation, the patient is unresponsive, on the ventilator, and is unable to provide any information. Her blood pressure was as low as 34/20. PAST MEDICAL HISTORY: As mentioned above. FAMILY HISTORY: Noncontributory. SOCIAL HISTORY: She lives at home. Does not smoke or drink alcohol. PHYSICAL EXAMINATION: VITAL SIGNS: Blood pressure is 90/60 on 2 pressors, pulse is 125, respirations 18. HEAD AND NECK: No JVD. She is orally intubated. LUNGS: Coarse rhonchi. CARDIOVASCULAR: Regular S1 and S2 without gallop, but tachycardic. ABDOMEN: Soft. EXTREMITIES: No pitting edema. LABORATORY AND DIAGNOSTIC DATA: Her EKG showed sinus rhythm, rate of 90. Labs show white count of 5.4, hemoglobin of 3.7, hematocrit of 12.5, and platelet count is 100. Sodium is 137, potassium 5.9, BUN of 60, creatinine of 2.5, and glucose of 95. INR is 1.6. ASSESSMENT AND PLAN: 1. Shock, likely due to sepsis and hemorrhagic. Hemoglobin was only 3.5. The patient is on 2 pressors. The patient received multiple units of blood transfusion. The patient is already on pressors including vasopressin and Levophed. The patient is also getting IV fluids as well as antibiotics. 2. Profound anemia. Further evaluation by Dr. Eaton. 3. Respiratory failure, on the ventilator. 4. Coagulopathy. 5. Contracture. Thank you very much Dr. Frost for allowing me to participate in the care of this patient. Please do not hesitate to contact me for any questions regarding my evaluation. The case was discussed with her son and the ICU nurse at the bedside. Danial Vasques M.D. DR: TINA JOB#: [id number] CC:
--- NOTE | 2020-01-15 16:20 | NUR ---
NURSE NOTES:WOUND CARE NOTES:Pt presented on admission with mottling of trunk, bilat upper and Bilat lower extremities, Contractures and Pressure injuries. Web spaces of fingers of R hand purpuric with ulcerations with surrounding maceration and is malodorous. Pt noted to have swelling of mons-pubis and labia majora which is also purpuric with # 3 small ulcerations that are moist and viable, noted to perineum. Noelle-rectal area is excoriated. DTPI R Iliac. Base of Pressure Injury is indurated,purpuric with surrounding maroon borders(L)3.6cm x (W)2.5cm. DTPI R Lumbar/sacral area. Base of Pressure injury is purpuric with maroon borders.(L)2.5cm x (W)5.5cm.Periwound is pale and mottled. Full Thickness Pressure Injury lower R buttocks(L)1.4cm x (W)1.4cm x (D)0.2cm. Base of wound is pale, moist with macerated Borders. Small amt serous exudate noted. Periwound is pale and mottled. DTPI L Hip(L)3.7cm x (W)6.2cm. Base of Pressure Injury is Purpuric with maroon borders. Non-Blanchable erythema periwound. Historical scar noted to L Hip. DTPI L trochanteric(L)6.8cm x (W)13cm . Base of Pressure Injury is maroon with scattered Purpuric areas. Surrounding non-blanchable erythema. DTPI L Ischium(L)3.8cm x (W)3.5cm. Base of Pressure Injury is purpuric with maroon borders. Surrounding pale and mottled skin. R Ischium is mottled and pale. Scattered Purpuric areas noted to both lower extremities Full thickness Ulcer with irregular borders that macerated noted to medial R lower extremity(L)6.8cm x (W)2.2cm x (D)0.3cm. Base of wound is pale, moist with macerated borders. Periwound is mottled and cool to touch. R foot is cool to touch.Web spaces of of R 3rd,4th and 5th metatarsals are macerated,ulcerated and malodorous. R Heel is purpuric ,fluctuant with surrounding pale and mottled skin (L)9cm x (W)8cm. Haemosiderin L lower ext with Xerosis skin.L foot cool touch. Web spaces of 2nd, 3rd, 4th and 5th metatarsals are macerated and malodorous. L Heel is purpuric ,fluctuant with surrounding Maroon borders(L)7cm x (W)8.5cm. Pt is highly compromised for skin breakdown due to protruding bony prominences and poor tissue profusion.Pt noted to develop erythema over bony prominence when positioned over said bony prominence for short periods. Cavilon Skin Barrier applied to bony prominences and each individually covered with Optifoam drsgs. Pt also placed on an APM/ARELIS Mattress overlay.Positioned with pillows and both heels floated off mattress with pillows. Tx.Plan: Apply Cavilon Skin Barrier to bony prominences and cover areas with Optifoam drsgs as needed. Apply Moisture Barrier paste to to Perineum and Noelle-Rectal areas with each incontinence care. Cleanse wound Lower R buttocks. Apply TheraHoney. Apply Moisture Barrier paste Periwound. Cover with Optifoam drsg. Change Daily and prn. Apply Cavilon Skin Barrier to R Iliac , R Lumbar-sacral,L Hip ,L trochanter, L Ischium,R Ischium. Cover each site with Optifoam drsgs. Change every 3 days and prn. Cleanse wound medial R lower ext. Apply TheraHoney. Apply Cavilon Skin Barrier Periwound. Cover with Abd pad. Wrap with Kerlix from base of toes to mid-calf Daily and prn. Apply Cavilon Skin Barrier to R heel . Cover with Abd .Wrap with Kerlix Daily and prn. Apply Photoplex Lotion to both lower ext daily and prn. Apply Cavilon Skin Barrier to L heel,Malleoli and L hallux. Cover with ABD pad .Wrap with Kerlix from base of toes to mid-calf Daily and prn. Apply Betadine to web spaces of metatarsals both feet. Weave dry gauze between toes Daily and prn. Reposition at least every 2hours or as tolerated. Off-load heels with pillow. APM/ARELIS Mattress overlay.
--- NOTE | 2020-01-15 16:40 | NUR ---
NURSE NOTES: 4th unit PRBC transfusion started at this time. Temp: 97.5, P: 95, B/P: 92/47.
--- NOTE | 2020-01-15 17:00 | NUR ---
NURSE NOTES: 15 mins post start of transfusion. Pt tolerating well. Temp: 97.2, P: 116, B/P: 97/51.
--- NOTE | 2020-01-15 17:30 | History and Physical Report ---
DATE OF ADMISSION: 01/14/2020 HISTORY OF PRESENT ILLNESS: This is a 65-year-old [place] female who came to the emergency room for acute respiratory failure and hypotensive shock. The patient was placed on Levophed drip and blood pressure was still low. The patient was living at home with the family with the son and severely contracted. She also has a bedsore stage II-III. The patient currently opens her eyes. She is in ICU, on ventilator, nonverbal, and blood pressure is still low, but overall more awake. Son was at the bedside. PAST MEDICAL HISTORY: The patient had possible surgery on the stomach and she had hemicolectomy. MEDICATIONS: Cannot be known. ALLERGIES: NKA. FAMILY HISTORY: Not contributory. SOCIAL HISTORY: Lives with family. PHYSICAL EXAMINATION: GENERAL: This is an elderly cachectic female, opening her eyes. VITAL SIGNS: Blood pressure is 88/52, pulse 125 to 104, respirations 20, and saturation 100% on ventilator. SKIN: Little dry. HEENT: Eyes are open. NECK: Supple. CHEST: Bilaterally decreased breath sounds. CARDIOVASCULAR: Irregular rhythm. Tachycardia. ABDOMEN: Soft. Positive bowel sounds. Nontender. EXTREMITIES: No edema. GENITOURINARY: Deferred. LABORATORY AND DIAGNOSTIC DATA: White count is 5.4, hemoglobin 13, platelets are 100,000. Chemistry panel, sodium 137, potassium 5.9, BUN 60, creatinine 3.5. Lactic acid 3.10. Troponins are negative. BNP was 7200. Albumin is 1.2. Her last ABG this morning, pH 7.207, pCO2 of 19, pO2 of 283, and saturation 98%. Her CT of abdomen and pelvis, the patient has marked mesenteric soft tissue edema , moderate right hydronephrosis, no ureteric dilatation, a 3 mm stone in the right hemipelvis, postsurgical changes of small bowel and colon, bowel is very poorly visualized, hepatic steatosis, cholelithiasis, left lower lobe atelectasis, small left pleural effusion, and severe degenerative changes. CT of the chest, the patient has pleural-based mass-like abnormal soft tissue at the right apex extending along the medial aspect of the right upper lobe, on the right. Differential of hematoma versus malignancy, diffuse anasarca of upper abdomen mesentery, omental hyperemia of esophagus and visualized upper abdomen GI tract. Chest x-ray is showing satisfactory endotracheal tube, obscuration of right apex, and increased density of the right paratracheal given history of difficult central line. Head CT is showing low attenuation with left basal ganglia and left frontal periventricular white matter and acute infarct . ASSESSMENT: 1. Severe anemia. 2. Acute respiratory failure. 3. Rule out CVA. 4. Hypotension. 5. Sepsis. PLAN: The patient is admitted in ICU, on ventilator. Continue antibiotics. The patient is currently on dopamine, Zosyn, vancomycin, PPIs, vasopressin, drip. She also has acute renal failure. We will consider GI consult, Pulmonary consult, Nephrology consult, and also Hematology/Oncology consult. Arnie Frost M.D. DR: Wilmar JOB#: [id number] CC:
--- NOTE | 2020-01-15 18:30 | NUR ---
NURSE NOTES: Transfusion completed at this time. No adverse transfusion reaction noted. Temp: 97.2, P: 118, B/P: 85/50. Pt remains maxed on 3 pressors; Levophed, Vasopressin, and Phenylephrine. Pt's son's aware of pt's current status.
--- NOTE | 2020-01-15 18:44 | Surgery Progress Note ---
Surgery Progress Note Subjective Additional Comments ill appearing on 3 pressors now transfusing prbc and ffp severe anemia prognosis guarded Objective Last 24 Hour Vital Signs Date Time Temp Pulse Resp B/P (MAP) Pulse Ox O2 Delivery O2 Flow Rate FiO2 01/15/20 18:15 88/51 01/15/20 18:15 111 88/51 01/15/20 18:00 121 20 88/51 (63) 100 01/15/20 17:30 116 19 97/51 (66) 100 01/15/20 17:00 113 19 98/60 (73) 100 01/15/20 16:30 113 20 97/64 (75) 100 01/15/20 16:00 Mechanical Ventilator 01/15/20 16:00 103 18 92/47 (62) 100 01/15/20 16:00 99/59 01/15/20 16:00 114 01/15/20 16:00 60 01/15/20 15:30 98 18 58/44 (49) 100 01/15/20 15:00 85/48 01/15/20 15:00 101 17 85/48 (60) 100 01/15/20 14:50 106 20 60 01/15/20 14:37 113 19 80/65 (70) 99 01/15/20 14:30 119 19 68/34 (45) 99 01/15/20 14:15 119 19 92/79 (83) 99 01/15/20 14:12 116 20 92/47 (62) 100 01/15/20 14:04 97 107/56 01/15/20 14:00 92/47 01/15/20 14:00 116 23 82/52 (62) 100 01/15/20 13:45 124 22 45/28 (34) 100 01/15/20 13:42 124 20 63/49 (54) 100 01/15/20 13:15 133 21 78/55 (63) 76 01/15/20 13:00 99.6 92 18 107/61 (76) 100 01/15/20 13:00 78/55 01/15/20 12:30 97 18 107/56 (73) 100 01/15/20 12:00 97 01/15/20 12:00 90/51 01/15/20 12:00 Mechanical Ventilator 01/15/20 12:00 100 01/15/20 12:00 97 18 90/51 (64) 100 01/15/20 11:30 97 18 91/50 (64) 100 01/15/20 11:29 102 19 80 01/15/20 11:00 82/48 01/15/20 11:00 99 17 85/52 (63) 100 01/15/20 10:45 108 18 81/46 (58) 100 01/15/20 10:30 101 16 95/46 (62) 100 01/15/20 10:00 103 18 83/47 (59) 100 01/15/20 10:00 93/48 01/15/20 09:43 104 88/52 01/15/20 09:42 88/52 01/15/20 09:30 104 19 88/52 (64) 100 01/15/20 09:00 88/45 01/15/20 09:00 102 19 87/53 (64) 100 01/15/20 08:30 113 20 74/38 (50) 100 01/15/20 08:15 112 20 88/73 (78) 100 01/15/20 08:00 100 01/15/20 08:00 100 01/15/20 08:00 89/51 01/15/20 08:00 99.3 112 18 76/44 (55) 100 01/15/20 08:00 Mechanical Ventilator 01/15/20 07:30 122 19 95/47 (63) 71 01/15/20 07:26 125 22 01/15/20 07:20 111 22 100 01/15/20 07:00 122 18 95/64 (74) 87 01/15/20 07:00 77/55 01/15/20 06:45 125 18 90/60 (70) 100 01/15/20 06:30 123 16 75/56 (62) 98 01/15/20 06:15 121 17 88/61 (70) 98 01/15/20 06:00 132 17 92/49 (63) 98 01/15/20 06:00 90/40 01/15/20 05:59 132 102/42 01/15/20 05:45 121 17 94/50 (65) 100 01/15/20 05:30 121 19 90/64 (73) 100 01/15/20 05:15 121 19 94/56 (69) 100 01/15/20 05:00 114 14 87/74 (78) 99 01/15/20 04:45 105 23 79/52 (61) 100 01/15/20 04:30 104 20 101/55 (70) 100 01/15/20 04:15 110 20 100/54 (69) 01/15/20 04:00 118 01/15/20 04:00 102/45 01/15/20 04:00 102/54 01/15/20 04:00 Mechanical Ventilator 100.0 01/15/20 04:00 97.8 114 21 96/50 (65) 96 01/15/20 04:00 Mechanical Ventilator 100.0 01/15/20 04:00 50 01/15/20 04:00 115 17 102/54 (70) 01/15/20 03:45 117 15 109/63 (78) 01/15/20 03:45 117 15 109/63 (78) 96 01/15/20 03:30 126 14 54/38 (43) 82 01/15/20 03:30 128 22 100 01/15/20 03:30 126 14 54/38 (43) 100 01/15/20 03:15 132 15 66/45 (52) 95 01/15/20 03:15 132 16 70/48 (55) 72 01/15/20 03:00 103/45 01/15/20 03:00 103/45 01/15/20 03:00 134 17 100/72 (81) 01/15/20 03:00 134 17 100/72 (81) 96 01/15/20 02:45 119 16 108/63 (78) 01/15/20 02:45 119 16 108/63 (78) 94 01/15/20 02:30 130 17 117/97 (104) 96 01/15/20 02:30 130 17 117/97 (104) 01/15/20 02:25 134 101/50 01/15/20 02:15 127 13 101/52 (68) 100 01/15/20 02:15 127 13 101/52 (68) 01/15/20 02:00 100/56 01/15/20 02:00 120 15 101/56 (71) 01/15/20 02:00 120 15 101/56 (71) 96 01/15/20 01:45 127 14 98/63 (75) 01/15/20 01:45 127 14 98/63 (75) 94 01/15/20 01:30 127 13 99/86 (90) 01/15/20 01:30 127 13 99/86 (90) 01/15/20 01:15 125 13 110/96 (101) 01/15/20 01:15 125 13 110/96 (101) 01/15/20 01:02 126 18 104/65 (78) 01/15/20 01:00 126 18 104/65 (78) 01/15/20 01:00 105/53 01/15/20 01:00 104/55 01/15/20 01:00 126 15 01/15/20 00:45 131 16 106/61 (76) 01/15/20 00:30 133 20 82/68 (73) 72 01/15/20 00:25 93/75 01/15/20 00:15 97.5 121 15 93/75 (81) 01/15/20 00:00 121 01/15/20 00:00 50 01/15/20 00:00 72/61 01/15/20 00:00 Mechanical Ventilator 100.0 01/15/20 00:00 114 16 83/61 (68) 01/14/20 23:45 113 15 92/55 (67) 01/14/20 23:36 112 21 50 01/14/20 23:36 112 21 100 Mechanical Ventilator 50 01/14/20 23:30 115 17 96/73 (81) 01/14/20 23:15 105 16 105/68 (80) 100 01/14/20 23:00 125 14 132/87 (102) 01/14/20 23:00 Mechanical Ventilator 01/14/20 22:54 93.0 124 16 88/43 (58) 82 01/14/20 22:34 85/55 01/14/20 22:30 93.3 120 18 85/65 100 Mechanical Ventilator 01/14/20 22:30 93.3 120 18 85/65 100 Mechanical Ventilator 3.0 50 01/14/20 22:30 85/55 01/14/20 22:15 131 21 98/47 100 Mechanical Ventilator 01/14/20 22:00 127 20 93/61 100 Mechanical Ventilator 01/14/20 21:45 127 22 88/60 100 Mechanical Ventilator 01/14/20 21:34 87/72 01/14/20 21:32 85/55 01/14/20 21:30 87/55 01/14/20 21:30 118 20 87/55 100 Mechanical Ventilator 01/14/20 21:15 117 22 88/55 100 Mechanical Ventilator 01/14/20 21:00 125 24 52/41 100 Mechanical Ventilator 01/14/20 20:55 57/21 01/14/20 20:45 118 15 62/42 100 Mechanical Ventilator 01/14/20 20:30 98/61 01/14/20 20:30 93.2 118 20 98/61 100 Mechanical Ventilator 01/14/20 20:29 50 01/14/20 20:15 111 21 88/64 100 Mechanical Ventilator 01/14/20 20:14 107 18 99 Mechanical Ventilator 3.0 100 125 20 50 100 01/14/20 20:00 105 19 57/21 100 Mechanical Ventilator 01/14/20 19:55 55/38 01/14/20 19:45 118 21 55/38 100 Mechanical Ventilator 01/14/20 19:30 93.2 130 22 01/14/20 19:30 126 20 45/35 100 Mechanical Ventilator 01/14/20 19:30 45/35 01/14/20 19:15 130 23 47/25 100 Mechanical Ventilator 01/14/20 18:58 35/20 I&O Intake and Output 01/14/20 01/15/20 19:00 07:00 Intake Total 4192.870 ml Output Total 50 ml 145 ml Balance -50 ml 4047.870 ml Intake Oral 0 ml IV Total 3625.870 ml Blood Product 567 ml Output Urine Total 50 ml 145 ml Dressing: other Wound: other Cardiovascular: RSR Respiratory: decreased breath sounds Abdomen: soft, decreased bowel sounds Extremities: no cyanosis, other Laboratory Tests Test 01/14/20 19:53 01/15/20 09:00 01/15/20 10:35 01/15/20 15:45 Arterial Blood pH 7.253 (7.350-7.450) 7.207 (7.350-7.450) Arterial Blood Partial Pressure CO2 22.0 mmHg (35.0-45.0) *L 19.5 mmHg (35.0-45.0) *L Arterial Blood Partial Pressure O2 283.7 mmHg (75.0-100.0) H 283.2 mmHg (75.0-100.0) H Arterial Blood HCO3 9.5 mmol/L (22.0-26.0) *L 7.6 mmol/L (22.0-26.0) *L Arterial Blood Oxygen Saturation 98.6 % (95-100) 98.5 % (95-100) Arterial Blood Base Excess -16.2 (-2-2) *L -18.6 (-2-2) *L Danny Test Positive Positive White Blood Count 13.4 K/UL (4.8-10.8) #H Red Blood Count 2.64 M/UL (4.20-5.40) L Hemoglobin 7.1 G/DL (12.0-16.0) #L Hematocrit 22.2 % (37.0-47.0) #L Mean Corpuscular Volume 84 FL (80-99) # Mean Corpuscular Hemoglobin 26.9 PG (27.0-31.0) L Mean Corpuscular Hemoglobin Concent 32.1 G/DL (32.0-36.0) Red Cell Distribution Width 16.8 % (11.6-14.8) H Platelet Count 76 K/UL (150-450) L Mean Platelet Volume 7.6 FL (6.5-10.1) Neutrophils (%) (Auto) % (45.0-75.0) Lymphocytes (%) (Auto) % (20.0-45.0) Monocytes (%) (Auto) % (1.0-10.0) Eosinophils (%) (Auto) % (0.0-3.0) Basophils (%) (Auto) % (0.0-2.0) Differential Total Cells Counted 100 Neutrophils % (Manual) 67 % (45-75) Lymphocytes % (Manual) 21 % (20-45) Monocytes % (Manual) 8 % (1-10) Eosinophils % (Manual) 0 % (0-3) Basophils % (Manual) 0 % (0-2) Band Neutrophils 4 % (0-8) Nucleated Red Blood Cells 1 /100 WBC Platelet Estimate Decreased L Platelet Morphology Normal Polychromasia 1+ Hypochromasia 1+ Anisocytosis 1+ Erythrocyte Sedimentation Rate 4 MM/HR (0-30) Prothrombin Time 26.1 SEC (9.30-11.50) H Prothromb Time International Ratio 2.5 (0.9-1.1) H Activated Partial Thromboplast Time 63 SEC (23-33) H Sodium Level 131 MMOL/L (136-145) L Potassium Level 4.6 MMOL/L (3.5-5.1) Chloride Level 105 MMOL/L (98-107) Carbon Dioxide Level 10 MMOL/L (21-32) L Anion Gap 16 mmol/L (5-15) H Blood Urea Nitrogen 45 mg/dL (7-18) H Creatinine 2.1 MG/DL (0.55-1.30) H Estimat Glomerular Filtration Rate 23.7 mL/min (>60) Glucose Level 177 MG/DL (74-106) H Lactic Acid Level 5.60 mmol/L (0.4-2.0) H 7.10 mmol/L (0.66-2.22) H Uric Acid 8.0 MG/DL (2.6-7.2) H Calcium Level 6.6 MG/DL (8.5-10.1) L Phosphorus Level 6.1 MG/DL (2.5-4.9) H Magnesium Level 1.7 MG/DL (1.8-2.4) L Total Bilirubin 1.0 MG/DL (0.2-1.0) Aspartate Amino Transf (AST/SGOT) 77 U/L (15-37) H Alanine Aminotransferase (ALT/SGPT) 44 U/L (12-78) Alkaline Phosphatase 66 U/L (46-116) Total Creatine Kinase 542 U/L (26-308) H Troponin I 0.025 ng/mL (0.000-0.056) C-Reactive Protein, Quantitative 2.9 mg/dL (0.00-0.90) H Pro-B-Type Natriuretic Peptide 91307 pg/mL (0-125) H Total Protein 3.4 G/DL (6.4-8.2) #L Albumin 0.9 G/DL (3.4-5.0) L Globulin 2.5 g/dL Albumin/Globulin Ratio 0.4 (1.0-2.7) L Plan Problems: (1) Anemia (2) Malnutrition (3) Hypotension (4) Shock Assessment & Plan: 65-year-old female presented in septic shock hypotensive anemia. Extensive work-up for etiology. Respiratory insufficiency intubated in ICU on pressor support. Significant anemia transfused work-up for etiology of bleeding undergoing. Patient too unstable for scope or intervention. Line placed. Lines noted. Continue with current management and resuscitation. No acute surgical intervention planned at this time. ABDOMEN: Liver: Hepatic steatosis. Gallbladder and bile ducts: Cholelithiasis. Gallbladder not visualized. Pancreas: Pancreas is obscured. Spleen: Spleen is obscured. Adrenals: Adrenal glands are obscured. Kidneys and ureters: Moderate right hydronephrosis. No ureteral dilatation. 3 mm stone within the right hemipelvis (image [id number]) is favored extra-ureteral. Contrast material within the renal collecting systems and ureters. Multiple cysts within the kidneys. Stomach and bowel: Postsurgical changes within the small bowel and colon. No bowel obstruction. PELVIS: Appendix: No findings to suggest acute appendicitis. Bladder: Contrast material within the bladder. Joaquin catheter within the bladder. No stones. Reproductive: Unremarkable as visualized. ABDOMEN and PELVIS: Intraperitoneal space: Unremarkable. No free air. No significant fluid collection. Bones/joints: Severe degenerative changes of the right hip. Left total hip arthroplasty. Soft tissues: Study severely limited by the patient's contracture deformity and marked mesenteric/soft tissue edema which obscures all of the fat planes within the abdomen and pelvis. Extensive mesenteric/soft tissue edema. Vasculature: Unremarkable. Lymph nodes: Unremarkable. IMPRESSION: 1. Study severely limited by the patient's contracture deformity and marked mesenteric/soft tissue edema which obscures all of the fat planes within the abdomen and pelvis. 2. Moderate right hydronephrosis. No ureteral dilatation. 3 mm stone within the right hemipelvis (image [id number]) is favored extra-ureteral. 3. Postsurgical changes within the small bowel and colon. The bowel is very poorly visualized. 4. Hepatic steatosis. 5. Cholelithiasis. 6. Left lower lobe atelectasis and small left pleural effusion. 7. Severe degenerative changes of the right hip. (5) Cellulitis (6) Dermatitis (7) Contracture of muscle (8) Cholelithiasis (9) Kidney stone (10) Coagulopathy (11) CVA (cerebral vascular accident) (12) Respiratory failure Assessment & Plan: Lungs/pleura: Pleural-based masslike abnormal soft tissue at the right apex and extending along the medial aspect of the right upper lobe. A few foci of pleural gas on the right. Heart: Unremarkable. No cardiomegaly. No significant pericardial effusion. Mediastinum: Hyperemia of the esophageal and visualized upper abdominal GI tract. Bones/joints: Increased density of the bones. No focal lesion. Soft tissues: Mesenteric edema within the upper abdomen. Subcutaneous emphysema adjacent to the right central line and within the left supraclavicular soft tissues. Diffuse anasarca. Vasculature: No pulmonary embolism. No acute aortic syndrome. Lymph nodes: Unremarkable. Tubes, lines and devices: Right IJ central line terminates within the SVC. Endotracheal tube terminates at the level of the clavicular heads. IMPRESSION: 1. Pleural-based masslike abnormal soft tissue at the right apex and extending along the medial aspect of the right upper lobe. A few foci of pleural gas on the right. Differential is hematoma versus malignancy. 2. Diffuse anasarca and upper abdominal mesenteric/omental edema. 3. Hyperemia of the esophageal and visualized upper abdominal GI tract. This can be seen in the setting of shock. wean vent (13) Decubitus skin ulcer Assessment & Plan: Pt presented on admission with mottling of trunk, bilat upper and Bilat lower extremities, Contractures and Pressure injuries. Web spaces of fingers of R hand purpuric with ulcerations with surrounding maceration and is malodorous. Pt noted to have swelling of mons-pubis and labia majora which is also purpuric with # 3 small ulcerations that are moist and viable, noted to perineum. Noelle-rectal area is excoriated. DTPI R Iliac. Base of Pressure Injury is indurated,purpuric with surrounding maroon borders(L)3.6cm x (W)2.5cm. DTPI R Lumbar/sacral area. Base of Pressure injury is purpuric with maroon borders.(L)2.5cm x (W)5.5cm.Periwound is pale and mottled. Full Thickness Pressure Injury lower R buttocks(L)1.4cm x (W)1.4cm x (D)0.2cm. Base of wound is pale, moist with macerated Borders. Small amt serous exudate noted. Periwound is pale and mottled. DTPI L Hip(L)3.7cm x (W)6.2cm. Base of Pressure Injury is Purpuric with maroon borders. Non-Blanchable erythema periwound. Historical scar noted to L Hip. DTPI L trochanteric(L)6.8cm x (W)13cm . Base of Pressure Injury is maroon with scattered Purpuric areas. Surrounding non-blanchable erythema. DTPI L Ischium(L)3.8cm x (W)3.5cm. Base of Pressure Injury is purpuric with maroon borders. Surrounding pale and mottled skin. R Ischium is mottled and pale. Scattered Purpuric areas noted to both lower extremities Full thickness Ulcer with irregular borders that macerated noted to medial R lower extremity(L)6.8cm x (W)2.2cm x (D)0.3cm. Base of wound is pale, moist with macerated borders. Periwound is mottled and cool to touch. R foot is cool to touch.Web spaces of of R 3rd,4th and 5th metatarsals are macerated,ulcerated and malodorous. R Heel is purpuric ,fluctuant with surrounding pale and mottled skin (L)9cm x (W )8cm. Haemosiderin L lower ext with Xerosis skin.L foot cool touch. Web spaces of 2nd , 3rd, 4th and 5th metatarsals are macerated and malodorous. L Heel is purpuric ,fluctuant with surrounding Maroon borders(L)7cm x (W)8.5cm. Pt is highly compromised for skin breakdown due to protruding bony prominences and poor tissue profusion.Pt noted to develop erythema over bony prominence when positioned over said bony prominence for short periods. Cavilon Skin Barrier applied to bony prominences and each individually covered with Optifoam drsgs. Pt also placed on an APM/ARELIS Mattress overlay.Positioned with pillows and both heels floated off mattress with pillows. Tx.Plan: Apply Cavilon Skin Barrier to bony prominences and cover areas with Optifoam drsgs as needed. Apply Moisture Barrier paste to to Perineum and Noelle-Rectal areas with each incontinence care. Cleanse wound Lower R buttocks. Apply TheraHoney. Apply Moisture Barrier paste Periwound. Cover with Optifoamdrsg. Change Daily and prn. Apply Cavilon Skin Barrier to R Iliac , R Lumbar-sacral,L Hip ,L trochanter, L Ischium,R Ischium. Cover each sitewith Optifoam drsgs. Change every 3 days and prn. Cleanse wound medial R lower ext. Apply TheraHoney. Apply Cavilon Skin Barrier Periwound. Cover with Abd pad. Wrap with Kerlix from base of toes to mid-calf Daily and prn. Apply Cavilon Skin Barrier to R heel . Cover with Abd .Wrap with Kerlix Daily and prn. Apply Photoplex Lotion to both lower ext daily and prn. Apply Cavilon Skin Barrier to L heel,Malleoli and L hallux. Cover with ABD pad .Wrap with Kerlix from base of toesto mid-calf Daily and prn. Apply Betadine to web spaces of metatarsals both feet. Weave dry gauze between toes Daily and prn. Reposition at least every 2hours or as tolerated. Off-load heels with pillow. APM/ARELIS Mattress overlay. Keron Fletcher Jan 15, 2020 18:44
--- NOTE | 2020-01-15 19:15 | NUR ---
NURSE HAND-OFF REPORT: Latest Vital Signs: Temperature 97.2 , Pulse 111 , B/P 59 /43 , Respiratory Rate 19 , O2 SAT 99 , Mechanical Ventilator, FiO2 60% . Vital Sign Comment: EKG Rhythm: Sinus Tachycardia Rhythm change?: N MD Notified?: - MD Response: Latest Rogers Fall Score: 50 Fall Risk: High Risk Safety Measures: Call light Within Reach, Bed Alarm Zone 3, Side Rails Side Rails x3, Bed position Low and Locked. Fall Precautions: Yellow Socks Door Sign Report given to NORIS Ortiz.
[2020-01-15] MEDS ORDERED: DOPamine 400mg/250ml 250 ML IV ONE (19:18)
--- NOTE | 2020-01-15 19:26 | NUR ---
NURSE NOTES: Called and left message for MD Padgett at this time. in regards to patient deteriorating condition. Awaiting Call back
--- NOTE | 2020-01-15 19:28 | NUR ---
RESPIRATORY NOTE: Received pt on AC 18, 400VT, 60%, no PEEP. Pt intubated w/ ETT 6.5 @ 22cm lipline, secured by anchorfast. Pt disoriented, minimal response to stimuli. B/S elsie. diminished, sxn small to moderate amounts of thick/thin, pale-yellow secretions. FiO2 increased to 100% at this time, pt has low perfusion & skin is cold to touch, unable to obtain spO2 reading on pulseox probe. RN at bedside. Vent plugged into red outlet, ambubag at bedside. Pt tolerating current settings. Will continue to monitor pt.
--- NOTE | 2020-01-15 19:30 | NUR ---
NURSE NOTES: Called and left message for MD Frost at this time. Notified him patient is maxed on levo, denis, dopamine and vasopressin. if there is anything else he would like to add at this time. Awaiting call back.
--- NOTE | 2020-01-15 19:31 | NUR ---
NURSE NOTES: MD Called back and stated to " call cardio he doesn't know of anything else" Informed him I have Paged cardio also but no answer yet.
--- NOTE | 2020-01-15 19:50 | NUR ---
NURSE NOTES: Spoke with MD Padgett about patient conditions. SBAR provided to MD. Stated " there is nothing more we can do" Epi drip ordered at this time. Stated he will come see the patient in the AM
[2020-01-15] MEDS ORDERED: EPINEPHrine 1mg/1ml Amp 1 MG in D5W 249 ML IV SCH (20:00)
--- NOTE | 2020-01-15 20:05 | NUR ---
NURSE NOTES: Son's at the Bedside requesting to Speak to a MD and have an MD come see their mother. Called and left message for MD Frost in regards to son request awaiting call back.
[2020-01-15] MEDS ORDERED: Sodium Bicarbonate 50ml Carp IV SCH (20:30)
--- NOTE | 2020-01-15 20:33 | NUR ---
NURSE NOTES: Message left for MD Frost again in regards to patients son's request to have MD Frost or any MD on the case speak to them. They would also like to also have an MD come assess their mother. awaiting call back from MD. Addendum: 01/15/20 at 204 by SUSANA ZARATE RN Also informed him that MD Young suggested for him to speak with the family.
--- NOTE | 2020-01-15 20:39 | NUR ---
NURSE NOTES: MD Frost called and requested sons number. Will call son at this time.
--- NOTE | 2020-01-15 20:44 | NUR ---
NURSE NOTES: MD Frost talking to the family on the phone at this time.
--- NOTE | 2020-01-15 20:55 | NUR ---
NURSE NOTES: Message left For MD Saleh at this time per MD Frost. Awaiting Call Back.
[2020-01-15 21:05] LABS: HEMATOCRIT 23.1 % (37.0-47.0); MEAN CORPUSCULAR VOLUME 96 FL (80-99); PLATELET COUNT 20 K/UL (150-450); RED CELL DISTRIBUTION WIDTH 17.1 % (11.6-14.8); WHITE BLOOD COUNT 12.2 K/UL (4.8-10.8)
--- NOTE | 2020-01-15 21:10 | NUR ---
NURSE NOTES: MD Saleh Called back. SBAR provided to MD about patient. Went over current antibiotics and pressors. Latest lactic acid also provided. Stated she will start patient some antibiotics and will insert orders herself.
[2020-01-15 21:12] LABS: HEMOGLOBIN 6.9 G/DL (12.0-16.0)
--- NOTE | 2020-01-15 21:27 | NUR ---
CODE BLUE: See Code sheet which remains on paper.
--- NOTE | 2020-01-15 21:27 | NUR ---
CODE BLUE: See Code sheet which remains on paper.
--- NOTE | 2020-01-15 21:48 | NUR ---
NURSE NOTES: Called MD Frost and notified him MD William has spoken to family at the bedside and they request for DNR at this time.
--- NOTE | 2020-01-15 21:48 | NUR ---
NURSE NOTES: Notified MD Frost patient coded and ROSC was obtained. Family and ER MD at the bedside at this time. No new orders
--- NOTE | 2020-01-15 22:11 | NUR ---
NURSE NOTES: FAMILY ORDER DNR HR 52-60 PEE B/P 0/0 TO COMT ALL PRESSURE DRIP
--- NOTE | 2020-01-15 22:15 | NUR ---
NURSE NOTES: ER MD William talking to son at this time. Family has decided to make patient DNR. Called and notified MD Frost, code status to be changed.
[2020-01-15] MEDS ORDERED: Tubing Blood Filter IV ONE ×2 (22:40)
[2020-01-15] MEDS ORDERED: Sodium Bicarbonate 8.4% 50ml Inj ONE (22:40)
[2020-01-15] MEDS ORDERED: NS 500ML ONE (22:40)
[2020-01-15] MEDS ORDERED: D5W 275ml ONE (22:40)
[2020-01-15] MEDS ORDERED: Tubing IV Secondary IV ONE ×2 (22:40)
[2020-01-15] MEDS ORDERED: D5W 550ml IV ONE (22:40)
--- NOTE | 2020-01-15 22:41 | NUR ---
NURSE NOTES:dr andrews pronunced post rustam care done
--- NOTE | 2020-01-15 22:46 | NUR ---
NURSE NOTES: HR O B/P O/O FAMILY AWARE
--- NOTE | 2020-01-15 22:48 | Emergency Room Report ---
Physical Exam Called to evaluate patient with hypotension on maximal pressors. Last 24 Hour Vital Signs Date Time Temp Pulse Resp B/P (MAP) Pulse Ox O2 Delivery O2 Flow Rate FiO2 01/15/20 21:45 89 18 65/34 (44) 01/15/20 21:30 82 4 50/26 (34) 36 01/15/20 21:15 77 18 40/11 (21) 01/15/20 21:00 84 18 48/15 (26) 49 01/15/20 20:45 88 18 54/20 (31) 01/15/20 20:30 0 19 50/26 (34) 21 0 01/15/20 20:15 106 19 52/30 (37) 60 01/15/20 20:00 Mechanical Ventilator 01/15/20 20:00 60 01/15/20 20:00 54/20 01/15/20 20:00 101 01/15/20 20:00 94.0 110 19 57/29 (38) 47 01/15/20 19:45 105 19 53/33 (40) 57 01/15/20 19:30 105 18 50/20 (30) 60 01/15/20 19:25 102 19 100 01/15/20 19:15 93.0 93 18 53/30 (38) 80 01/15/20 19:00 59/43 01/15/20 19:00 111 19 59/43 (48) 99 01/15/20 18:45 115 20 62/31 (41) 85 01/15/20 18:30 97.2 119 19 76/47 (57) 99 01/15/20 18:15 88/51 01/15/20 18:15 111 88/51 01/15/20 18:00 85/50 01/15/20 18:00 121 20 88/51 (63) 100 01/15/20 17:30 116 19 97/51 (66) 100 01/15/20 17:00 113 19 98/60 (73) 100 01/15/20 17:00 98/60 01/15/20 16:30 113 20 97/64 (75) 100 01/15/20 16:00 Mechanical Ventilator 01/15/20 16:00 103 18 92/47 (62) 100 01/15/20 16:00 99/59 01/15/20 16:00 114 01/15/20 16:00 60 01/15/20 15:30 98 18 58/44 (49) 100 01/15/20 15:00 85/48 01/15/20 15:00 101 17 85/48 (60) 100 01/15/20 14:50 106 20 60 01/15/20 14:37 113 19 80/65 (70) 99 01/15/20 14:30 119 19 68/34 (45) 99 01/15/20 14:15 119 19 92/79 (83) 99 01/15/20 14:12 116 20 92/47 (62) 100 01/15/20 14:04 97 107/56 01/15/20 14:00 92/47 01/15/20 14:00 116 23 82/52 (62) 100 01/15/20 13:45 124 22 45/28 (34) 100 01/15/20 13:42 124 20 63/49 (54) 100 01/15/20 13:15 133 21 78/55 (63) 76 01/15/20 13:00 99.6 92 18 107/61 (76) 100 01/15/20 13:00 78/55 01/15/20 12:30 97 18 107/56 (73) 100 01/15/20 12:00 97 01/15/20 12:00 90/51 01/15/20 12:00 Mechanical Ventilator 01/15/20 12:00 100 01/15/20 12:00 97 18 90/51 (64) 100 01/15/20 11:30 97 18 91/50 (64) 100 01/15/20 11:29 102 19 80 01/15/20 11:00 82/48 01/15/20 11:00 99 17 85/52 (63) 100 01/15/20 10:45 108 18 81/46 (58) 100 01/15/20 10:30 101 16 95/46 (62) 100 01/15/20 10:00 103 18 83/47 (59) 100 01/15/20 10:00 93/48 01/15/20 09:43 104 88/52 01/15/20 09:42 88/52 01/15/20 09:30 104 19 88/52 (64) 100 01/15/20 09:00 88/45 01/15/20 09:00 102 19 87/53 (64) 100 01/15/20 08:30 113 20 74/38 (50) 100 01/15/20 08:15 112 20 88/73 (78) 100 01/15/20 08:00 100 01/15/20 08:00 100 01/15/20 08:00 89/51 01/15/20 08:00 99.3 112 18 76/44 (55) 100 01/15/20 08:00 Mechanical Ventilator 01/15/20 07:30 122 19 95/47 (63) 71 01/15/20 07:26 125 22 01/15/20 07:20 111 22 100 01/15/20 07:00 122 18 95/64 (74) 87 01/15/20 07:00 77/55 01/15/20 06:45 125 18 90/60 (70) 100 01/15/20 06:30 123 16 75/56 (62) 98 01/15/20 06:15 121 17 88/61 (70) 98 01/15/20 06:00 132 17 92/49 (63) 98 01/15/20 06:00 90/40 01/15/20 05:59 132 102/42 01/15/20 05:45 121 17 94/50 (65) 100 01/15/20 05:30 121 19 90/64 (73) 100 01/15/20 05:15 121 19 94/56 (69) 100 01/15/20 05:00 114 14 87/74 (78) 99 01/15/20 04:45 105 23 79/52 (61) 100 01/15/20 04:30 104 20 101/55 (70) 100 01/15/20 04:15 110 20 100/54 (69) 01/15/20 04:00 118 01/15/20 04:00 102/45 01/15/20 04:00 102/54 01/15/20 04:00 Mechanical Ventilator 100.0 01/15/20 04:00 97.8 114 21 96/50 (65) 96 01/15/20 04:00 Mechanical Ventilator 100.0 01/15/20 04:00 50 01/15/20 04:00 115 17 102/54 (70) 01/15/20 03:45 117 15 109/63 (78) 01/15/20 03:45 117 15 109/63 (78) 96 01/15/20 03:30 126 14 54/38 (43) 82 01/15/20 03:30 128 22 100 01/15/20 03:30 126 14 54/38 (43) 100 01/15/20 03:15 132 15 66/45 (52) 95 01/15/20 03:15 132 16 70/48 (55) 72 01/15/20 03:00 103/45 01/15/20 03:00 103/45 01/15/20 03:00 134 17 100/72 (81) 01/15/20 03:00 134 17 100/72 (81) 96 01/15/20 02:45 119 16 108/63 (78) 01/15/20 02:45 119 16 108/63 (78) 94 01/15/20 02:30 130 17 117/97 (104) 96 01/15/20 02:30 130 17 117/97 (104) 01/15/20 02:25 134 101/50 01/15/20 02:15 127 13 101/52 (68) 100 01/15/20 02:15 127 13 101/52 (68) 01/15/20 02:00 100/56 01/15/20 02:00 120 15 101/56 (71) 01/15/20 02:00 120 15 101/56 (71) 96 01/15/20 01:45 127 14 98/63 (75) 01/15/20 01:45 127 14 98/63 (75) 94 01/15/20 01:30 127 13 99/86 (90) 01/15/20 01:30 127 13 99/86 (90) 01/15/20 01:15 125 13 110/96 (101) 01/15/20 01:15 125 13 110/96 (101) 01/15/20 01:02 126 18 104/65 (78) 01/15/20 01:00 126 18 104/65 (78) 01/15/20 01:00 105/53 01/15/20 01:00 104/55 01/15/20 01:00 126 15 01/15/20 00:45 131 16 106/61 (76) 01/15/20 00:30 133 20 82/68 (73) 72 01/15/20 00:25 93/75 01/15/20 00:15 97.5 121 15 93/75 (81) 01/15/20 00:00 121 01/15/20 00:00 50 01/15/20 00:00 72/61 01/15/20 00:00 Mechanical Ventilator 100.0 01/15/20 00:00 114 16 83/61 (68) 01/14/20 23:45 113 15 92/55 (67) 01/14/20 23:36 112 21 50 01/14/20 23:36 112 21 100 Mechanical Ventilator 50 01/14/20 23:30 115 17 96/73 (81) 01/14/20 23:15 105 16 105/68 (80) 100 01/14/20 23:00 125 14 132/87 (102) 01/14/20 23:00 Mechanical Ventilator 01/14/20 22:54 93.0 124 16 88/43 (58) 82 Sp02 EP Interpretation: reviewed, abnormal General Appearance: severe distress, thin - Cachectic, Chronically Ill Head: normocephalic Eyes: bilateral eye abnormal EOM - Unresponsive, bilateral eye other - Pupils unreactive ENT: dry mucus membranes, other - Endotracheal tube present Neck: other - Flaccid Respiratory: rales, rhonchi Cardiovascular #1: regular rate, rhythm Cardiovascular #2: 1+ femoral (R) Gastrointestinal: decreased bowel sounds, scaphoid Genitourinary: ext genitalia/vag normal, other Musculoskeletal: decreased range of motion - Contractures lower extremities, other - Flaccid Neurologic: other - Unresponsive Psychiatric: other - Unresponsive Reflexes: 0 knee (R), 0 knee (L) Skin: mottled, other - Cool Critical Care Time Critical Care Time Total Critical Care Time: 45 min bedside evaluation and treatment excludes procedures (EKG, code, POCUS). Reason for critical care: Hypotensive, hypoxemic and cardiopulmonary arrest Possible complications: hypotension, hypertension, [place], shock, arrhythmias, metabolic acidosis, end organ damage, respiratory failure. Interventions: POCUS, review of records, discussion with family, discussion with nursing staff Course: Patient was sepsis, anemia and on maximal pressors x4. Asked to evaluate patient by family. Review of medical records and laboratory and discussion with nursing staff. POCUS performed for volume status and cardiac activity. Decreased contractility and full inferior vena cava. In the process of discussing treatment options with patient coded. See CODE BLUE reports. Critical anemia assessed. Blood gas obtained by me. Blood had been ordered. Patient has antibodies and blood not available for 8 hours. After CODE BLUE discussion with family regarding DNR status. After multiple discussions family agrees to DNR status. Consultations: nursing staff, family, medical records Performed by: Dr. William Tolerated well condition = critical and futile prognosis Ultrasound Ultrasound : Consent: Emergent Patient Tolerated: Well Complications: None Progress Cardiac and inferior vena cava ultrasound performed with abdominal probe. Decreased contractility. Full vena cava. No pericardial effusion. CPR/Code Blue CPR/Code Blue Narrative EDUARD CRUZ called 2126. Patient asystolic. CPR supervised by me and performed well. Epinephrine administered x3. Sodium bicarbonate administered x2. Ultrasound performed by me reveals cardiac activity however patient in PEA. Return of spontaneous circulation at 2136. Blood gas obtained by me left femoral artery. Metabolic acidosis. Discussion of poor prognosis with family. Medical Decision Making Diagnostic Impression: Primary Impression: Cardiopulmonary arrest Additional Impressions: Hypotension Qualified Codes: I95.89 - Other hypotension Severe sepsis with septic shock Anemia Qualified Codes: D64.9 - Anemia, unspecified ER Course I was asked to evaluate this patient by the family and also the private physician. She is on 4 pressors at maximal dosing. She was transfused with 5 units and previous hemoglobin was low but improved. Due to the unknown etiology of hypotension emergency ultrasound performed by me. Decreased cardiac contractility and full vena cava. Discussion with family regarding findings and probable futility of care. They still want full treatment. Patient coded with asystole. Return of spontaneous circulation. See CODE BLUE report. Blood gas obtained by me. This was after 2 A of bicarb. Hemoglobin critically low. Discussion of transfusions. Barrier as patient has antibodies and estimated time of ability to transfuse the patient 8 hours. Discussion of this with family. Family decides to change CODE STATUS to DNR. Prognosis is dismal. Expect demise soon. Laboratory Tests Test 01/14/20 13:10 01/14/20 15:10 01/14/20 16:16 01/14/20 17:45 White Blood Count 6.4 K/UL (4.8-10.8) 5.4 K/UL (4.8-10.8) Red Blood Count 3.82 M/UL (4.20-5.40) L 1.62 M/UL (4.20-5.40) L Hemoglobin 8.7 G/DL (12.0-16.0) L 3.7 G/DL (12.0-16.0) Hematocrit 29.3 % (37.0-47.0) L 12.5 % (37.0-47.0) #L Mean Corpuscular Volume 77 FL (80-99) L 77 FL (80-99) L Mean Corpuscular Hemoglobin 22.8 PG (27.0-31.0) L 23.1 PG (27.0-31.0) L Mean Corpuscular Hemoglobin Concent 29.7 G/DL (32.0-36.0) L 29.8 G/DL (32.0-36.0) L Red Cell Distribution Width 22.1 % (11.6-14.8) H 23.2 % (11.6-14.8) H Platelet Count 141 K/UL (150-450) L 100 K/UL (150-450) L Mean Platelet Volume 6.0 FL (6.5-10.1) L 6.5 FL (6.5-10.1) Neutrophils (%) (Auto) 60.8 % (45.0-75.0) % (45.0-75.0) Lymphocytes (%) (Auto) 26.0 % (20.0-45.0) % (20.0-45.0) Monocytes (%) (Auto) 11.3 % (1.0-10.0) H % (1.0-10.0) Eosinophils (%) (Auto) 0.0 % (0.0-3.0) % (0.0-3.0) Basophils (%) (Auto) 2.0 % (0.0-2.0) % (0.0-2.0) Prothrombin Time 16.7 SEC (9.30-11.50) H Prothrombin Time INR 1.6 (0.9-1.1) H Activated Partial Thromboplast Time 35 SEC (23-33) H D-Dimer 1.13 mg/L FEU (0.00-0.49) H Urine Color Brown Urine Appearance Slightly cloudy Urine pH 5 (4.5-8.0) Urine Specific [place] 1.015 (1.005-1.035) Urine Protein 2+ (NEGATIVE) H Urine Glucose (UA) Negative (NEGATIVE) Urine Ketones 1+ (NEGATIVE) H Urine Blood 1+ (NEGATIVE) H Urine Nitrite Positive (NEGATIVE) H Urine Bilirubin 2+ (NEGATIVE) H Urine Ictotest Negative (NEGATIVE) Urine Urobilinogen 4 MG/DL (0.0-1.0) H Urine Leukocyte Esterase 1+ (NEGATIVE) H Urine RBC 2-4 /HPF (0 - 2) H Urine WBC 2-4 /HPF (0 - 2) Urine Squamous Epithelial Cells Moderate /LPF (NONE/OCC) H Urine Amorphous Sediment Few /LPF (NONE) H Urine Bacteria Few /HPF (NONE) Urine Hyaline Casts 5-10 /LPF (NONE) H Urine Mucus Moderate /LPF (NONE/OCC) H Sodium Level 137 MMOL/L (136-145) Potassium Level 5.9 MMOL/L (3.5-5.1) H Chloride Level 107 MMOL/L (98-107) Carbon Dioxide Level 20 MMOL/L (21-32) L Anion Gap 10 mmol/L (5-15) Blood Urea Nitrogen 60 mg/dL (7-18) H Creatinine 2.5 MG/DL (0.55-1.30) H Estimated Glomerular Filtration Rate 19.4 mL/min (>60) Glucose Level 95 MG/DL (74-106) Lactic Acid Level 3.10 mmol/L (0.4-2.0) H 1.90 mmol/L (0.66-2.22) Calcium Level 7.3 MG/DL (8.5-10.1) L Ferritin 35 NG/ML (8-388) Total Bilirubin 0.5 MG/DL (0.2-1.0) Aspartate Amino Transferase (AST) 31 U/L (15-37) Alanine Aminotransferase (ALT) 36 U/L (12-78) Alkaline Phosphatase 120 U/L (46-116) H Lactate Dehydrogenase 237 U/L (81-234) H Total Creatine Kinase 89 U/L (26-308) Creatine Kinase MB 6.8 NG/ML (0.0-3.6) H Creatine Kinase MB Relative Index 7.6 Troponin I 0.000 ng/mL (0.000-0.056) C-Reactive Protein, Quantitative < 0.4 mg/dL (0.00-0.90) Pro-B-Type Natriuretic Peptide 7266 pg/mL (0-125) H Total Protein 5.8 G/DL (6.4-8.2) L Albumin 1.2 G/DL (3.4-5.0) L Globulin 4.6 g/dL Albumin/Globulin Ratio 0.3 (1.0-2.7) L Amylase Level 23 U/L (25-115) L POC Whole Blood Glucose Pending Differential Total Cells Counted 100 Neutrophils % (Manual) 91 % (45-75) H Lymphocytes % (Manual) 5 % (20-45) L Monocytes % (Manual) 4 % (1-10) Eosinophils % (Manual) 0 % (0-3) Basophils % (Manual) 0 % (0-2) Band Neutrophils 0 % (0-8) Nucleated Red Blood Cells 2 /100 WBC Platelet Estimate Decreased L Platelet Morphology Normal Polychromasia 2+ Hypochromasia 3+ Anisocytosis 3+ Microcytosis 2+ Test 01/14/20 19:53 01/15/20 09:00 01/15/20 10:35 01/15/20 14:30 Arterial Blood pH 7.253 (7.350-7.450) 7.207 (7.350-7.450) Arterial Blood Partial Pressure CO2 22.0 mmHg (35.0-45.0) *L 19.5 mmHg (35.0-45.0) *L Arterial Blood Partial Pressure O2 283.7 mmHg (75.0-100.0) H 283.2 mmHg (75.0-100.0) H Arterial Blood HCO3 9.5 mmol/L (22.0-26.0) *L 7.6 mmol/L (22.0-26.0) *L Arterial Blood Oxygen Saturation 98.6 % (95-100) 98.5 % (95-100) Arterial Blood Base Excess -16.2 (-2-2) *L -18.6 (-2-2) *L Danny Test Positive Positive White Blood Count 13.4 K/UL (4.8-10.8) #H Red Blood Count 2.64 M/UL (4.20-5.40) L Hemoglobin 7.1 G/DL (12.0-16.0) #L Hematocrit 22.2 % (37.0-47.0) #L Mean Corpuscular Volume 84 FL (80-99) # Mean Corpuscular Hemoglobin 26.9 PG (27.0-31.0) L Mean Corpuscular Hemoglobin Concent 32.1 G/DL (32.0-36.0) Red Cell Distribution Width 16.8 % (11.6-14.8) H Platelet Count 76 K/UL (150-450) L Mean Platelet Volume 7.6 FL (6.5-10.1) Neutrophils (%) (Auto) % (45.0-75.0) Lymphocytes (%) (Auto) % (20.0-45.0) Monocytes (%) (Auto) % (1.0-10.0) Eosinophils (%) (Auto) % (0.0-3.0) Basophils (%) (Auto) % (0.0-2.0) Differential Total Cells Counted 100 Neutrophils % (Manual) 67 % (45-75) Lymphocytes % (Manual) 21 % (20-45) Monocytes % (Manual) 8 % (1-10) Eosinophils % (Manual) 0 % (0-3) Basophils % (Manual) 0 % (0-2) Band Neutrophils 4 % (0-8) Nucleated Red Blood Cells 1 /100 WBC Platelet Estimate Decreased L Platelet Morphology Normal Polychromasia 1+ Hypochromasia 1+ Anisocytosis 1+ Erythrocyte Sedimentation Rate 4 MM/HR (0-30) Prothrombin Time 26.1 SEC (9.30-11.50) H Prothrombin Time INR 2.5 (0.9-1.1) H Activated Partial Thromboplast Time 63 SEC (23-33) H Sodium Level 131 MMOL/L (136-145) L Potassium Level 4.6 MMOL/L (3.5-5.1) Chloride Level 105 MMOL/L (98-107) Carbon Dioxide Level 10 MMOL/L (21-32) L Anion Gap 16 mmol/L (5-15) H Blood Urea Nitrogen 45 mg/dL (7-18) H Creatinine 2.1 MG/DL (0.55-1.30) H Estimated Glomerular Filtration Rate 23.7 mL/min (>60) Glucose Level 177 MG/DL (74-106) H Lactic Acid Level 5.60 mmol/L (0.4-2.0) H Uric Acid 8.0 MG/DL (2.6-7.2) H Calcium Level 6.6 MG/DL (8.5-10.1) L Phosphorus Level 6.1 MG/DL (2.5-4.9) H Magnesium Level 1.7 MG/DL (1.8-2.4) L Total Bilirubin 1.0 MG/DL (0.2-1.0) Aspartate Amino Transferase (AST) 77 U/L (15-37) H Alanine Aminotransferase (ALT) 44 U/L (12-78) Alkaline Phosphatase 66 U/L (46-116) Total Creatine Kinase 542 U/L (26-308) H Troponin I 0.025 ng/mL (0.000-0.056) C-Reactive Protein, Quantitative 2.9 mg/dL (0.00-0.90) H Pro-B-Type Natriuretic Peptide 95530 pg/mL (0-125) H Total Protein 3.4 G/DL (6.4-8.2) #L Albumin 0.9 G/DL (3.4-5.0) L Globulin 2.5 g/dL Albumin/Globulin Ratio 0.4 (1.0-2.7) L Stool Occult Blood Pending Test 01/15/20 15:45 01/15/20 20:45 01/15/20 21:38 Lactic Acid Level 7.10 mmol/L (0.66-2.22) H White Blood Count 12.2 K/UL (4.8-10.8) H Red Blood Count 2.40 M/UL (4.20-5.40) L Hemoglobin 6.9 G/DL (12.0-16.0) *L Hematocrit 23.1 % (37.0-47.0) L Mean Corpuscular Volume 96 FL (80-99) # Mean Corpuscular Hemoglobin 28.9 PG (27.0-31.0) Mean Corpuscular Hemoglobin Concent 30.1 G/DL (32.0-36.0) L Red Cell Distribution Width 17.1 % (11.6-14.8) H Platelet Count 20 K/UL (150-450) #L Mean Platelet Volume 9.9 FL (6.5-10.1) Neutrophils (%) (Auto) % (45.0-75.0) Lymphocytes (%) (Auto) % (20.0-45.0) Monocytes (%) (Auto) % (1.0-10.0) Eosinophils (%) (Auto) % (0.0-3.0) Basophils (%) (Auto) % (0.0-2.0) Differential Total Cells Counted 100 Neutrophils % (Manual) 54 % (45-75) Lymphocytes % (Manual) 36 % (20-45) Monocytes % (Manual) 10 % (1-10) Eosinophils % (Manual) 0 % (0-3) Basophils % (Manual) 0 % (0-2) Band Neutrophils 0 % (0-8) Nucleated Red Blood Cells 4 /100 WBC Platelet Estimate Decreased L Platelet Morphology Normal Polychromasia 1+ Hypochromasia 1+ Anisocytosis 1+ Macrocytosis 1+ Arterial Blood pH 7.104 (7.350-7.450) Arterial Blood Partial Pressure CO2 54.0 mmHg (35.0-45.0) H Arterial Blood Partial Pressure O2 189.0 mmHg (75.0-100.0) H Arterial Blood HCO3 16.5 mmol/L (22.0-26.0) *L Arterial Blood Oxygen Saturation Pending Arterial Blood Base Excess -13.3 (-2-2) *L Danny Test Positive Microbiology Date/Time Source Procedure Growth Status 01/14/20 13:10 Nasopharynx SARS-CoV-2 RdRp Gene Assay - Final Complete Rhythm Strip Diag. Results EP Interpretation: yes Rhythm: NSR, no PVC's, no ectopy, other - Postcode Status: improved Disposition: ADMITTED INPATIENT Condition: Critical Scripts No Active Prescriptions or Reported Meds Referrals: [facility] (PCP) Momo William MD Jan 15, 2020 22:48
[2020-01-15] MEDS ORDERED: Meropenem 1 GM in NS 55 ML IVPB SCH (23:00)
--- NOTE | 2020-01-15 23:13 | NUR ---
NURSE NOTES: Message left for MD Frost at this time. Patient Hbg came back 6.9 and platelets 20. orders to transfuse 2 u PRBC and CBC and BMP in the AM. Orders read back and confirmed by .
--- NOTE | 2020-01-15 23:28 | Emergency Room Report ---
History of Present Illness General Chief Complaint: Altered Level of Consciousness Source: Medical Record, PMD Present Illness HPI This patient was admitted for severe sepsis with septic shock. She also has respiratory failure and was intubated. She was coded earlier today. After discussion with family and Dr. William, patient was made a DNR. She became asystolic at 22:41. I was called to pronounce the patient. On my arrival, patient has no spontaneous respiration or pulse. She was asystole on the monitor. After turn off the ventilator, she has no spontaneous respiration. She remained asystolic. I pronounced her . Time of is 2240. Family members at bedside. Allergies: Coded Allergies: No Known Allergies (Unverified , 10/13/15) COVID-19 Screening Contact w/high risk pt: No Experienced COVID-19 symptoms?: No COVID-19 symptoms experienced: Shortness of Breath COVID-19 Testing performed RECONCILIATION ANALYST: No COVID-19 Screening: Negative COVID-19 Patient History Now: No Nursing Documentation-[facility] Past Medical History: No Stated History Hx Cardiac Problems: Yes Hx Hypertension: Yes Hx Cancer: No Hx Gastrointestinal Problems: Yes Hx Neurological Problems: Yes Hx Cerebrovascular Accident: Yes Physical Exam Vital Signs Date Time Temp Pulse Resp B/P (MAP) Pulse Ox O2 Delivery O2 Flow Rate FiO2 01/14/20 13:00 97.9 95 24 117/93 (101) 94 Nasal Cannula 3.0 01/14/20 16:34 100 Medical Decision Making Diagnostic Impression: Primary Impression: Cardiopulmonary arrest Additional Impressions: Severe sepsis with septic shock Anemia Hypotension Last Vital Signs Date Time Temp Pulse Resp B/P (MAP) Pulse Ox O2 Delivery O2 Flow Rate FiO2 01/15/20 22:43 0/0 (0) 01/15/20 22:35 0 01/15/20 22:15 18 01/15/20 21:30 36 01/15/20 20:00 Mechanical Ventilator 01/15/20 20:00 60 01/15/20 20:00 94.0 01/15/20 04:00 100.0 Disposition: ADMITTED INPATIENT Condition: Scripts No Active Prescriptions or Reported Meds Referrals: [facility] (PCP) Bhupendra Daniel MD Jan 15, 2020 23:28
[2020-01-15] MEDS ORDERED: DOPAMINE 400 MG/250 ML IV SCH (23:30)
--- NOTE | 2020-01-16 00:50 | NUR ---
NURSE NOTES: Message left for MD Frost. Patient .
--- NOTE | 2020-01-16 13:58 | Discharge Summary ---
Discharge Summary Discharge Summary _ SUMMARY DATE OF ADMISSION: 01/14/2020 DATE OF EXPIRATION: 01/15/2020 REASON FOR ADMISSION: 65 years old female with past medical history of hypertension, presented to emergency department by paramedics from home. According to her son she was increasingly lethargic over the last few days. Per home health nursing blood pressure was low . Patient apparently lost a lot of weight recently, as she was not eating or drinking. Patient was hypotensive, hypoxemic, tachypneic and hypothermic on arrival. Blood pressure poorly responded to IV fluids. Ultrasound done at the bedside revealed no evidence of pericardial effusion. Central line was placed in anticipation for pressors Patient demonstrated agonal breathing and subsequently was orally intubated. Initial chest x-ray revealed no acute cardiopulmonary pathology. Follow-up chest x-ray revealed satisfactory endotracheal intubation. CT scan of the head revealed findings, suspicious of acute infarct. CT scan of the chest demonstrated pleural-based masslike abnormal soft tissue at the right apex and extending along the medial aspect of the right upper lobe. A few foci of pleural gas on the right. Differential was hematoma versus malignancy. Diffuse anasarca and abdominal mesenteric edema. Hyperemia of the esophageal and visualized upper abdominal GI tract. CT scan of the abdomen and pelvis revealed moderate right hydronephrosis. No ureteral dilatation. 3 mm stone within the right hemipelvis. Hepatic steatosis. Cholelithiasis. Left lower lobe atelectasis and small left pleural effusion. Laboratory work-up revealed potassium 5.9. Calcium 7.3. BUN 60, creatinine 2.5. Lactic acid 3.1, reported repeated 1.9. LDH 237, alkaline phosphatase 120. Troponin negative , pro BNP 7266 Albumin 1.2. No leukocytosis, hemoglobin 8.7, hematocrit 29.3. D-dimer 1.13. Urinalysis revealed +2 protein ,+1 leukocyte esterase ,no pyuria ,few bacteria ,evidence of hyaline casts. Rapid COVID-19 was negative In emergency department patient received fluids , pancultured, started on empiric antibiotics and pressors. Patient also received albumin bolus. Patient received calcium gluconate. Hyperkalemia was treated. Patient subsequently admitted for further management to ICU. CONSULTANTS: rolling attendant pulmonary Dr. Young GI specialist Dr. Eaton surgery Dr. Fletcher [facility]: Patient admitted to ICU. Ventilator support and pulmonary toilet provided as per print traffic manager recommendation. Patient was on pressors, titrated to keep mean arterial blood pressure above 65 . Hemodynamic status was closely monitored. Echocardiogram demonstrated preserved ejection fraction of 65 to 70%. Borderline LV hypertrophy. No wall motion abnormalities. Moderate tricuspid regurgitation. Right ventricular systolic pressure of 46, consistent with moderate pulmonary hypertension. Patient initially started on Levophed , then dopamine added. Venous duplex bilateral lower extremity revealed no evidence of acute DVT. The next day hemoglobin from 8.7 dropped to 3.7. GI specialist urgently seen and evaluated patient. Patient was kept n.p.o. Patient started on PPI . Unfortunately patient was on pressors and not stable for EGD . Stool for occult blood was negative. Patient received total of 4 units of packed red blood cells and 1 unit of fresh frozen plasma. Renal parameters were closely monitored, electrolytes further corrected as needed , and nephrotoxic's were avoided. Chest x-ray the next day showed new left lung infiltrate and small effusion. WBC count jumped to 13.4 the next day. Antibiotic continued. Rapid COVID-19 was negative. At the time of this dictation blood culture came back negative preliminary. Patient presented on admission with multiply deep tissue pressure injuries. Wound care for multiple decubitus ulcers provided as per general surgeon recommendation. Blood pressure remained extremely unstable. Patient eventually required 4 different pressors: Levophed, dopamine, vasopressin and phenylephrine, which were all on maximum dose Emergency room physician was called to ICU for evaluation at 21:15 in the evening of 01/14. Cardiac ultrasound was performed at the bedside and revealed no pericardial effusion. CODE BLUE was subsequently called due to asystole. ACLS protocol initiated. Patient had return of spontaneous circulation. Extremely poor prognosis was discussed with the family at that time, Family decided to change CODE STATUS to DNR/DNI. Patient subsequently was pronounced at 22:41 on 01/14. Cause of : cardiopulmonary arrest FINAL DIAGNOSES: Status post cardiopulmonary arrest Acute respiratory failure requiring intubation Hypovolemic and septic shock Sepsis Acute renal failure/acute kidney injury Acute CVA Profound anemia,requiring multiple blood tansfuison Coagulopathy Lactic acidosis Cholelithiasis Contractures Severe protein calorie malnutrition Multiply decubitus ulcers, present on admission Kidney stone. I have been assigned to dictate discharge summary for this account. I was not involved in the patient's management. Candice Mccollum NP Jan 16, 2020 13:58
--- NOTE | 2020-01-16 15:16 | NUR ---
*-* INSURANCE *-* UPDATED CLINICALS AND REVIEWS HAVE BEEN FAXED TO: # [phone] FAX# [phone] REVIEWS/CLINICALS w/ note attached patient
--- NOTE | 2020-01-16 16:31 | Cardiology Report ---
APPROVED REPORT EKG Measurement Heart [id number] <Conclusion> Normal sinus rhythm Low voltage QRS Cannot rule out Anterior infarct, age undetermined Abnormal ECG
== END 2020-01-15 22:41 | disposition expired | DRG 720 ==
LOC: EDBD 13:14 → EMR 14:05 → EDBEDREQ 15:27 → EDBEDREQSVC 15:27 → ICU 16:23 → EDBEDREQ 18:59 → ICU 19:50
PROC: 5A1945Z Respiratory Ventilation, 24-96 Consecutive Hours (ICD-10-PCS; principal; 2020-01-14)
PROC: 0BH17EZ Insertion of Endotracheal Airway into Trachea, Via Natural or Artificial Opening (ICD-10-PCS; 2020-01-14)
PROC: 30233N1 Transfusion of Nonautologous Red Blood Cells into Peripheral Vein, Percutaneous Approach (ICD-10-PCS; 2020-01-14)
PROC: 30233K1 Transfusion of Nonautologous Frozen Plasma into Peripheral Vein, Percutaneous Approach (ICD-10-PCS; 2020-01-14)
PROC: 5A12012 Performance of Cardiac Output, Single, Manual (ICD-10-PCS; 2020-01-14)
DX: A41.9 Sepsis, unspecified organism (principal); R65.21 Severe sepsis with septic shock; Z51.5 Encounter for palliative care; Z66 Do not resuscitate; D64.9 Anemia, unspecified; D68.9 Coagulation defect, unspecified; J96.00 Acute respiratory failure, unspecified whether with hypoxia or hypercapnia; L89.154 Pressure ulcer of sacral region, stage 4; Z90.49 Acquired absence of other specified parts of digestive tract; R57.1 Hypovolemic shock; N17.9 Acute kidney failure, unspecified; K80.20 Calculus of gallbladder without cholecystitis without obstruction; E43 Unspecified severe protein-calorie malnutrition; L89.90 Pressure ulcer of unspecified site, unspecified stage; L03.90 Cellulitis, unspecified; L30.9 Dermatitis, unspecified; L89.893 Pressure ulcer of other site, stage 3; M62.40 Contracture of muscle, unspecified site; N20.0 Calculus of kidney; L89.316 Pressure-induced deep tissue damage of right buttock; L89.156 Pressure-induced deep tissue damage of sacral region; L89.226 Pressure-induced deep tissue damage of left hip; L89.326 Pressure-induced deep tissue damage of left buttock; Z96.642 Presence of left artificial hip joint; Z86.73 Personal history of transient ischemic attack (TIA), and cerebral infarction without residual deficits; I46.9 Cardiac arrest, cause unspecified
CPT/HCPCS: 31500; 36415; 36569; 70450; 71045; 71260; 74018; 74176; 80053; 81003; 82150; 82270; 82550; 82553; 82728; 82803; 82962; 83605; 83615; 83735; 83880; 84100; 84484; 84550; 85007; 85025; 85379; 85610; 85651; 85730; 86140; 86850; 86870; 86900; 86901; 86904; 86920; 86927; 87040; 87081; 92950; 93005; 93306; 93970; 94002; 94003; 94664; 96361; 96365; 96366; 96367; 96375; 99291; 99292; J0171; J2370; J3430; J7030; U0002